=== PATIENT | male | born 1965 | race Caucasian/White ===

== ENCOUNTER 2016-05-13 09:37 | Inpatient (IN) | payer OTHER ==
[~2016-05-13] VITALS: Ht 180.3 cm; Wt 89.6 kg
[2016-05-13] VITALS (10 sets, daily range): BP systolic 118–156; BP diastolic 64–89; PULSE 101–117; RESP 16–24; TEMP 98.8–100.2; O2SAT 95–98
[~2016-05-13 09:37] MED LIST: METH40TA PO; ZOFR4TAB PO
--- NOTE | 2016-05-13 10:21 | PD ---
HPI Chief Complaint: GI Complaint Time Seen by Provider: 10:03 Travel History International Travel<30 days: No Contact w/Intl Traveler<30days: No Traveled to known affect area: No History of Present Illness HPI This is a 50-year-old male who has a history of drug use and recent heavy alcohol use who presents to the emergency department with 1 week of increasing confusion and abdominal distention that's been appreciated by his sister. 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 She says one week ago she noticed that his abdomen was distended. They took him to the [place] emergency department where he was noted to have low platelets and an elevated bilirubin consistent with liver disease. He was discharged home. His sister reports that he's been increasingly confused, and is unable to do things on his own. He was was to move into his brother's house but he's been unable to do that without getting fatigued and he is difficult to direct. She says he has no history of known liver disease. He's never used IV drugs that she knows, but he did use cocaine heavily years ago. He has not had any fevers or chills but he has been constipated. He is on methadone due to a history of opiate dependency, but he' s missed his methadone over the past 3 days because of the holiday and because he's been ill. [facility] Past Medical History Hx Anticoagulant Therapy: No Cardiovascular Problems: Yes (HTN) Diabetes: Yes (TYPE 2) Patient Takes Glucophage: Yes Diminished Hearing: No Hypertension: Yes Musculoskeletal: Yes (CHRONIC ANTERIOR NECK PAIN) Immunizations Current: No Thyroid Disease: Yes (NODULE ABLATION) Past Surgical History Other Surgery: Yes (THYROID NODULE ABLATION) Social History Alcohol Use: Yes (DAILY X 2 WEEKS) Tobacco Use: Yes (05/13 PPD) Substance Use: Yes (HX NARCOTIC ABUSE; METHADONE MAINTENENCE SINCE 05/2015) Allergies-Medications (Allergen,Severity, Reaction): Coded Allergies: Benadryl (Verified Allergy, Unknown, Twitching, 05/13/16) Dystonic Rxn per patient. Darvocet-N 100 (Verified Allergy, Unknown, Rash, 05/13/16) Morphine (Verified Allergy, Unknown, Rash, 05/13/16) PT DENIES ON 1/2/17 Reported Meds & Prescriptions Reported Meds & Active Scripts Active Reported Methadone (Methadone HCl) 40 Mg Tab 90 Mg PO DAILY Review of Systems Except as stated in HPI: all other systems reviewed are Neg Physical Exam Narrative GENERAL:Well appearing, no acute distress SKIN: Telangiectasias along the chest wall HEAD: Atraumatic. Normocephalic. EYES: Pupils equal and round. No injection or drainage. ENT: Moist mucous membranes NECK: Trachea midline. CARDIOVASCULAR: Regular rate and rhythm. No murmur appreciated. RESPIRATORY: Clear to auscultation. Breath sounds equal bilaterally. GASTROINTESTINAL: Abdomen soft, distended, markedly tender to palpation in the right upper quadrant and epigastrium with some guarding. MUSCULOSKELETAL: No obvious deformities. NEUROLOGICAL: Awake and alert. No obvious cranial nerve deficits. Moving all extremities. PSYCHIATRIC: Appropriate mood and affect; insight and judgment normal. Data Data Last Documented VS Vital Signs Date Time Temp Pulse Resp B/P Pulse Ox O2 Delivery O2 Flow Rate FiO2 05/13/16 10:26 97 Room Air 05/13/16 09:54 101 20 156/64 05/13/16 09:38 98.8 Orders Complete Blood Count With Diff (05/13/16 10:18) Comprehensive Metabolic Panel (05/13/16 10:18) Lipase (05/13/16 10:18) Prothrombin Time / Inr (Pt) (05/13/16 10:18) Act Partial Throm Time (Ptt) (05/13/16 10:18) Iv Access Insert/Monitor (05/13/16 10:18) Ecg Monitoring (05/13/16 10:18) Oximetry (05/13/16 10:18) Sodium Chloride 0.9% Flush (Ns Flush) (05/13/16 10:30) Us Abdomen Liver (05/13/16 ) Ammonia (05/13/16 10:18) Alcohol (Ethanol) (05/13/16 10:18) Pantoprazole Inj (Protonix Inj) (05/13/16 12:45) Admit Order (Ed Use Only) (05/13/16 12:34) Alcohol Withdrawal Asmt-Ciwa ONCE (05/13/16 12:34) Flumazenil Inj (Romazicon Inj) (05/13/16 12:45) Lorazepam (Ativan) (05/13/16 12:45) Lorazepam Inj (Ativan Inj) (05/13/16 12:45) Lorazepam (Ativan) (05/13/16 12:45) Lorazepam Inj (Ativan Inj) (05/13/16 12:45) Lorazepam Inj (Ativan Inj) (05/13/16 12:45) Lorazepam Inj (Ativan Inj) (05/13/16 12:45) Labs Laboratory Tests Test 05/13/16 10:20 White Blood Count 7.2 TH/MM3 Red Blood Count 3.75 MIL/MM3 Hemoglobin 13.5 GM/DL Hematocrit 38.5 % Mean Corpuscular Volume 102.5 FL Mean Corpuscular Hemoglobin 36.0 PG Mean Corpuscular Hemoglobin 35.1 % Concent Red Cell Distribution Width 18.3 % Platelet Count 61 TH/MM3 Mean Platelet Volume 9.2 FL Neutrophils (%) (Auto) 73.7 % Lymphocytes (%) (Auto) 12.3 % Monocytes (%) (Auto) 12.8 % Eosinophils (%) (Auto) 0.1 % Basophils (%) (Auto) 1.1 % Neutrophils # (Auto) 5.3 TH/MM3 Lymphocytes # (Auto) 0.9 TH/MM3 Monocytes # (Auto) 0.9 TH/MM3 Eosinophils # (Auto) 0.0 TH/MM3 Basophils # (Auto) 0.1 TH/MM3 CBC Comment AUTO DIFF Differential Comment AUTO DIFF CONFIRMED Platelet Estimate LOW Platelet Morphology Comment NORMAL Target Cells 2+ Prothrombin Time 15.2 SEC Prothromb Time International 1.4 RATIO Ratio Activated Partial 28.9 SEC Thromboplast Time Sodium Level 134 MEQ/L Potassium Level 3.9 MEQ/L Chloride Level 93 MEQ/L Carbon Dioxide Level 29.2 MEQ/L Anion Gap 12 MEQ/L Blood Urea Nitrogen 9 MG/DL Creatinine 0.84 MG/DL Estimat Glomerular Filtration 97 ML/MIN Rate Random Glucose 126 MG/DL Calcium Level 8.5 MG/DL Total Bilirubin 2.6 MG/DL Aspartate Amino Transf 191 U/L (AST/SGOT) Alanine Aminotransferase 60 U/L (ALT/SGPT) Alkaline Phosphatase 536 U/L Ammonia 13 MCMOL/L Total Protein 8.4 GM/DL Albumin 2.4 GM/DL Lipase 273 U/L Ethyl Alcohol Level 290 MG/DL MDM Medical Decision Making Medical Screen Exam Complete: Yes Emergency Medical Condition: Yes Interpretation(s) Afebrile, tachycardic, normotensive Macrocytosis Thrombocytopenia INR is 1.4 Total bilirubin is 2.6 Alkaline phosphatase is 536 Alcohol level is 290 Ultrasound: Moderate ascites, no documented flow in the portal vein consistent with partial thrombosis Differential Diagnosis Gastritis, pancreatitis, cholelithiasis, cholecystitis, acute opiate withdrawal Narrative Course This is a 50-year-old male who has a history of alcoholism, opiate dependence and drug abuse who presents to the emergency department with abdominal pain brought in by his sister. He was placed on a monitor and an IV was established. Labs were obtained which are consistent with labs from 1 week ago demonstrating liver disease and likely alcoholic cirrhosis in the setting of thrombocytopenia and elevated coags. Ultrasound was obtained of the right upper quadrant demonstrating a likely partial portal vein thrombosis. I performed a Hemoccult which was positive. The sister does say that he's had some brown emesis. Patient will be started on pantoprazole. I will defer anticoagulation at this time. He will be placed on the CIWA protocol given his alcohol level was 290. We did confirm his methadone dose at 90 but given his elevated alcohol level I don't think it's appropriate to administer it at this time. Patient will be admitted for GI consultation. Diagnosis Primary Impression: Portal vein thrombosis Admitting Information Admitting Physician Requests: Admit Sonali Reese MD May 13, 2016 10:21
[2016-05-13] MEDS ORDERED: SODIUM CHLORIDE 0.9% FLUSH 5 ML FLUSH IVF PRN (10:30)
[2016-05-13 10:34] LABS: AUTOMATED NEUTROPHIL # 5.3 TH/MM3 (1.8-7.7); BASOPHIL # 0.1 TH/MM3 (0-0.2); BASOPHIL % 1.1 % (0.0-2.0); EOSINOPHIL % 0.1 % (0.0-4.0); HEMATOCRIT 38.5 % (39.0-51.0); LYMPH % 12.3 % (9.0-44.0); LYMPHOCYTE # 0.9 TH/MM3 (1.0-4.8); MEAN CELL VOLUME 102.5 FL (80.0-100.0); MEAN CORPUSCULAR HGB CONC 35.1 % (32.0-36.0); MONO % 12.8 % (0.0-8.0); NEUT % 73.7 % (16.0-70.0); PLATELET COUNT 61 TH/MM3 (150-450); RED BLOOD COUNT 3.75 MIL/MM3 (4.50-5.90); RED CELL DISTRIBUTION WIDTH 18.3 % (11.6-17.2); WHITE BLOOD COUNT 7.2 TH/MM3 (4.0-11.0)
[2016-05-13 10:36] LABS: HEMO FLAGS AUTO DIFF
[2016-05-13 10:43] LABS: APTT (PATIENT) 28.9 SEC (24.3-30.1); INTERNATIONAL NORMALIZED RATIO 1.4 RATIO; PROTHROMBIN TIME - PATIENT 15.2 SEC (9.8-11.6)
[2016-05-13 10:45] LABS: ALT (GPT) 60 U/L (12-78); ANION GAP 12 MEQ/L (5-15); AST (GOT) 191 U/L (15-37); BICARBONATE 29.2 MEQ/L (21.0-32.0); BLOOD UREA NITROGEN 9 MG/DL (7-18); CHLORIDE 93 MEQ/L (98-107); GLOMERULAR FILTRATION RATE 97 ML/MIN (>89); POTASSIUM 3.9 MEQ/L (3.5-5.1); SODIUM (NA) 134 MEQ/L (136-145)
[2016-05-13 10:47] LABS: ALKALINE PHOSPHATASE 536 U/L (45-117); TOTAL BILIRUBIN ADULT 2.6 MG/DL (0.2-1.0)
[2016-05-13 11:05] LABS: SCAN/DIFF AUTO DIFF CONFIRMED
[2016-05-13 11:06] LABS: PLATELET ESTIMATE SMEAR LOW (NORMAL); PLATELET MORPHOLOGY NORMAL (NORMAL)
[2016-05-13 11:07] LABS: TARGET CELLS 2+ (NORMAL)
--- NOTE | 2016-05-13 12:13 | RADRPT ---
EXAM DATE/TIME: 05/13/2016 10:49 [facility] COMPARISON: No previous studies available for comparison. INDICATIONS : Increased lab values. MEDICAL HISTORY : Hypertension. Diabetes. SURGICAL HISTORY : Thyroid nodule ablation. Cervial fusion anterior C4-C6 ENCOUNTER: Initial ACUITY: 1 day PAIN SCORE: 5/10 LOCATION: Abdomen. MEASUREMENTS: LIVER: 18.3 cm length COMMON DUCT: 5 mm RIGHT KIDNEY: 11.2 x 5.7 x 5.8 cm SPLEEN: 13.8 cm length FINDINGS: LIVER: 8mm cyst in the left lobe of the liver. Moderate ascites. Hepatofugal flow in the main portal vein. T here is evidence of partial portal vein thrombosis. COMMON DUCT: No intraluminal mass or stone visualized. GALLBLADDER: Olelithiasis is seen without definite wall thickening. PANCREAS: The visualized portions are within normal limits. RIGHT KIDNEY: No hydronephrosis, stone or mass. SPLEEN: No focal lesion. CONCLUSION: 1. Moderate ascites in all 4 quadrants. 2. Hepatosplenomegaly with hepatofugal flow within the main portal vein and 3. Cholelithiasis. 4. There is no documented flow in the main portal vein near the danie hepatis on color Doppler imagin g consistent with partial thrombosis. Dayton Hart MD on May 13, 2016 at 12:10 Board Certified Radiologist. This report was verified electronically.
[2016-05-13] MEDS ORDERED: PANTOPRAZOLE SODIUM 40 MG VIAL IV PUSH ONE (12:45)
[2016-05-13] MEDS ORDERED: LORazepam 2 MG/ML VIAL IV PUSH PRN ×3 (12:45)
[2016-05-13] MEDS ORDERED: LORazepam 2 MG TAB PO PRN (12:45)
[2016-05-13] MEDS ORDERED: FLUMAZENIL 1 MG/10 ML VIAL IV PUSH PRN (12:45)
[2016-05-13] MEDS ORDERED: LORazepam 1 MG TAB PO PRN (12:45)
--- NOTE | 2016-05-13 13:43 | HHI.HP ---
[facility] Service Family Medicine Primary Care Physician No Primary Care Physician Admission Diagnosis portal vein thrombosis Diagnoses: International Travel<30 Days: No Contact w/Intl Traveler<30days: No Known Affected Area: No History of Present Illness Patient is a 50-year-old man with a history of substance abuse who presents with 1 week of increasing confusion, abdominal distention, abdominal pain, nausea, vomiting, constipation. He reports that his confusion largely consists of forgetfulness and not knowing where he puts things. He reports vomiting for days, and that he hasn't been eating or stooling. He describes the vomit as appearing yellow then green then dark brown but not coffee ground in appearance. 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 When pt first noticed that his abdomen was distended, he went to the [facility] emergency department where he was noted to have low platelets and an elevated bilirubin consistent with liver disease. He was discharged home with antinausea medication. He reports that Zofran was not working for his nausea and vomiting, but Phenergan seemed to help. His sister, a nurse, gave him Aldactone, which seemed to help but only temporarily. Patient denies any previous history of known liver disease. He denied using IV drugs, but he did use cocaine heavily years ago. He has not had any fevers or chills but he has been constipated. He is on methadone due to a history of opiate dependency, but he's missed his methadone over the past 3 -4 days because of the holiday. (Sohail Griffin MD R1) Review of Systems Constitutional: COMPLAINS OF: Weight gain (fluid), Chills (come and go q15min) , Change in appetite (decreased), DENIES: Fever, Night Sweats Endocrine: DENIES: Polyuria Eyes: COMPLAINS OF: Blurred vision Ears, nose, mouth, throat: COMPLAINS OF: Running Nose, DENIES: Hearing loss, Throat pain Respiratory: COMPLAINS OF: Shortness of breath (with belly) Cardiovascular: COMPLAINS OF: Lower Extremity Edema (ankles), Orthopnea, DENIES: Chest pain, Syncope Gastrointestinal: COMPLAINS OF: Abdominal pain, Constipation, Nausea, Vomiting , DENIES: Black stools, Bloody stools (yellow stools), Diarrhea Genitourinary: DENIES: Dysuria Musculoskeletal: COMPLAINS OF: Muscle aches (all over) Neurologic: COMPLAINS OF: Headache Psychiatric: COMPLAINS OF: Confusion (Sohail Griffin MD R1) Past Family Social History Past Medical History c-spine injury HTN t2DM - diet and exercised, was on metformin for 4 years but not currently on synthroid for a while but not currently Past Surgical History C-spine surgery with cadaver bones radioablation of thyroid Reported Medications methadone 90mg aldactone recently advil pm tylenol (Sohail Griffin MD R1) Allergies: Coded Allergies: Benadryl (Verified Allergy, Unknown, Twitching, 05/13/16) Dystonic Rxn per patient. Darvocet-N 100 (Verified Allergy, Unknown, Rash, 05/13/16) Morphine (Verified Allergy, Unknown, Rash, 05/13/16) PT DENIES ON 05/13/16 Active Ordered Medications Current Medications Medications (Trade) Dose Ordered Sig/Laurie Route Start Time Stop Time Status Last Admin (Ativan) 1 mg Q4H PRN PO 05/13/16 12:45 (Ativan Inj) 1 mg Q4H PRN IV PUSH 05/13/16 12:45 05/14/16 01:39 (Ativan) 2 mg Q2H PRN PO 05/13/16 12:45 (Ativan Inj) 2 mg Q2H PRN IV PUSH 05/13/16 12:45 05/13/16 17:06 (Ativan Inj) 2 mg Q1H PRN IV PUSH 05/13/16 12:45 05/13/16 14:53 (Ativan Inj) 2 mg Q15M PRN IV PUSH 05/13/16 12:45 (NS Flush) 2 ml UNSCH PRN FLUSH 05/13/16 14:45 (NS Flush) 2 ml BID FLUSH 05/13/16 21:00 (Zofran Inj) 4 mg Q6H PRN IVP 05/13/16 14:45 05/13/16 21:48 (Ambien) 5 mg HS PRN PO 05/13/16 14:45 (Narcan Inj) 0.4 mg UNSCH PRN IV 05/13/16 14:45 (Dolophine) 90 mg DAILY PO 05/13/16 16:00 05/13/16 17:01 (Lasix Inj) 20 mg BID@,18 IV PUSH 05/13/16 18:00 05/13/16 18:01 (Aldactone) 100 mg DAILY PO 05/13/16 16:00 05/13/16 17:02 (Dilaudid Pf Inj) 1 mg Q4H PRN IV 05/13/16 15:00 (Reglan Inj) 10 mg Q6H PRN IV 05/13/16 15:00 (Phenergan Inj) 25 mg Q6H PRN IM 05/13/16 15:00 (Compazine Supp) 25 mg Q12H PRN [place] 05/13/16 15:00 (Protonix Inj) 40 mg DAILY IV 05/14/16 09:00 (Narcan Inj) 0.4 mg UNSCH PRN IV 05/13/16 15:00 (Motrin) 400 mg Q6H PRN PO 05/13/16 15:00 (Toradol Inj) 15 mg Q6H PRN IVP 05/13/16 15:00 05/18/16 14:59 (Toradol Inj) 30 mg Q6H PRN IVP 05/13/16 15:00 05/18/16 14:59 (Ultram) 50 mg Q4H PRN PO 05/13/16 15:00 (Ultram) 100 mg Q4H PRN PO 05/13/16 15:00 (Narcan Inj) 0.4 mg UNSCH PRN IV 05/13/16 15:00 (Pneumovax-23 Inj) 25 mcg ONCE ONCE IM 05/14/16 10:00 05/14/16 10:01 (Flu (Quadrivalent) Vaccine Inj) 0.5 ml ONCE ONCE IM 05/14/16 10:00 05/14/16 10:01 (Nancy-Colace) 2 tab BID PO 05/13/16 21:30 05/13/16 21:41 (Miralax) 17 gm DAILY PO 05/14/16 09:00 (Lovenox Inj) 90 mg Q12H SQ 05/13/16 22:00 05/13/16 21:58 Family History dad - 2 ya of liver failure, cirrhosis, DM, hepatorenal syndrome, thyroid cancer - pt, sister with mets. [place] with radiation exposure. mom, pt, sis - HTN Social History Per sister, in his 20's, patient was addicted to crack and cocaine. 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 He was , doing well, until she cheated on him. 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 For years, he was on and off the EtOH wagon. Over a year ago, he snorting heroin. On 90mg methadone for a long while. He lives in an apartment with roommate Peter. Not much smoking lately, but he was smoking 1ppd since 13 yo. EtOH daily for a couple months. He drank only occasionally prior to 2-3 months ago. Drugs none for years. Patient likely had hepatitis tested as district plant engineer. 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 (Sohail Griffin MD R1) Physical Exam Vital Signs Vital Signs Date Time Temp Pulse Resp B/P Pulse Ox O2 Delivery O2 Flow Rate FiO2 05/13/16 12:58 104 20 133/89 97 Room Air 05/13/16 10:26 97 Room Air 05/13/16 09:54 101 20 156/64 95 05/13/16 09:38 98.8 105 16 140/69 97 Physical Exam GENERAL: This is a well-nourished, well-developed patient who appears uncomfortable and is heard vomiting from outside the emergency department room but in no acute distress. SKIN: No rashes, ecchymoses or lesions. Cool and dry. HEAD: Atraumatic. Normocephalic. EYES: Pupils equal round and reactive. Extraocular motions intact. No scleral icterus. No injection or drainage. ENT: Nose without bleeding, purulent drainage. Throat without erythema, tonsillar hypertrophy or exudate. Uvula midline. Airway patent. NECK: Trachea midline. No JVD or lymphadenopathy. Supple, nontender, no meningeal signs. CHEST: spider angiomata/telangiectasias on chest. CARDIOVASCULAR: Regular rate and rhythm without murmurs, gallops, or rubs. RESPIRATORY: Clear to auscultation. Breath sounds equal bilaterally. No wheezes , rales, or rhonchi. GASTROINTESTINAL: Abdomen distended with fluid, but soft, non-tender. No guarding. MUSCULOSKELETAL: Extremities without clubbing, cyanosis, or edema. No joint tenderness, effusion, or edema noted. No calf tenderness. Myoclonic jerks of upper extremities. NEUROLOGICAL: Awake and alert. Cranial nerves II through XII grossly intact. Motor and sensory grossly within normal limits. Normal speech. Laboratory Laboratory Tests Test 05/13/16 10:20 White Blood Count 7.2 Red Blood Count 3.75 Hemoglobin 13.5 Hematocrit 38.5 Mean Corpuscular Volume 102.5 Mean Corpuscular Hemoglobin 36.0 Mean Corpuscular Hemoglobin 35.1 Concent Red Cell Distribution Width 18.3 Platelet Count 61 Mean Platelet Volume 9.2 Neutrophils (%) (Auto) 73.7 Lymphocytes (%) (Auto) 12.3 Monocytes (%) (Auto) 12.8 Eosinophils (%) (Auto) 0.1 Basophils (%) (Auto) 1.1 Neutrophils # (Auto) 5.3 Lymphocytes # (Auto) 0.9 Monocytes # (Auto) 0.9 Eosinophils # (Auto) 0.0 Basophils # (Auto) 0.1 CBC Comment AUTO DIFF Differential Comment AUTO DIFF CONFIRMED Platelet Estimate LOW Platelet Morphology Comment NORMAL Target Cells 2+ Prothrombin Time 15.2 Prothromb Time International 1.4 Ratio Activated Partial 28.9 Thromboplast Time Sodium Level 134 Potassium Level 3.9 Chloride Level 93 Carbon Dioxide Level 29.2 Anion Gap 12 Blood Urea Nitrogen 9 Creatinine 0.84 Estimat Glomerular Filtration 97 Rate Random Glucose 126 Calcium Level 8.5 Total Bilirubin 2.6 Aspartate Amino Transf 191 (AST/SGOT) Alanine Aminotransferase 60 (ALT/SGPT) Alkaline Phosphatase 536 Ammonia 13 Total Protein 8.4 Albumin 2.4 Lipase 273 Ethyl Alcohol Level 290 (Sohail Griffin MD R1) Result Diagram: 05/13/16 1020 05/13/16 1020 Imaging Last Impressions Liver Ultrasound 05/13/16 0000 Signed Impressions: Service Date/Time: Friday, May 13, 2016 10:49 - CONCLUSION: 1. Moderate ascites in all 4 quadrants. 2. Hepatosplenomegaly with hepatofugal flow within the main portal vein and 3. Cholelithiasis. 4. There is no documented flow in the main portal vein near the danie hepatis on color Doppler imaging consistent with partial thrombosis. Dayton Hart MD Course In the emergency department, patient had alcohol level, ammonia level, ultrasound of the abdomen and liver, a PTT, PT/INR, lipase, CMP, CBC, CIWA protocol with Ativan, Protonix 40 mg IV push 1. (Sohail Griffin MD R1) Assessment and Plan Assessment and Plan 50-year-old man with a history of substance abuse, heavy drinking recently and remote history of snorting cocaine and heroin, presents with portal vein thrombosis. Code Status Full code Discussed Condition With Patient seen and discussed with Dr. Fabienne Montez and Dr. Kalia Montez. (Sohail Griffin MD R1) Attending Attestation Patient seen and examined. Case reviewed and discussed with the resident team. Agree with plan of care as discussed with me and documented in the resident note. (Fabienne Montez MD) Problem List: (1) Portal vein thrombosis Status: Acute Plan: Patient presents with nausea, vomiting, abdominal pain, constipation, ultrasound imaging showing portal vein thrombosis. Admit to inpatient Gastroenterology consult Anticoagulation with Lovenox 1 mg/kg every 12 hours Hepatitis profile, HIV, iron profile CBC, CMP in the morning Pain control as below: * Dilaudid 1 mg IV every 4 hours when necessary for breakthrough pain * Ibuprofen 400 mg by mouth every 6 hours when necessary for pain 1-2 * Toradol 15 mg IV push every 6 hours when necessary for pain 3-5 * Toradol 3 mg IV push every 6 hours when necessary for pain 6-10 * Tramadol 50 mg by mouth every 4 hours when necessary for pain 3-5 * Tramadol 100 mg by mouth every 4 hours when necessary for pain 6-10 Constipation control as below: * MiraLAX 17 g by mouth daily * Nancy-Colace 2 tab by mouth twice a day Nausea control as below: * Reglan 10 mg IV every 6 hours when necessary for nausea or vomiting * Zofran 4 mg IV push every 6 hours when necessary for nausea or vomiting * Compazine 25 mg WY every 12 hours when necessary for nausea or vomiting * Phenergan 25 mg IM every 6 hours when necessary for nausea or vomiting Diuretics as below: * Spironolactone 100 mg by mouth daily * Lasix 20 mg IV push twice a day Protonix 40 mg IV daily Ambien family and by mouth daily at bedtime when necessary for insomnia Monitor vital signs Monitor intake and output surveillance system monitor/telemetry Administer oxygen as needed (2) Ascites Status: Acute Plan: Diuresis as above (3) Methadone dependence Status: Chronic Plan: Patient with methadone dependence. Methadone 90 mg by mouth daily; plan to wean as outpatient (4) Alcohol use Status: Chronic Plan: Patient with history of heavy drinking complaining of withdrawal symptoms. CIWA protocol (5) Tobacco use Status: Chronic Plan: Patient reports smoking about a pack per day since 13 years old and more recently about a half pack per day. Nicotine patch 14 mg patch transdermal daily (6) No contraindication to deep vein thrombosis (DVT) prophylaxis Status: Acute Plan: Anticoagulation as a treatment for portal vein thrombosis. Anticoagulation with Lovenox 1 mg/kg every 12 hours (7) Nutrition, metabolism, and development symptoms Status: Acute Plan: Fluids: Fluid restrict patient as he is currently volume overloaded Electrolytes: Monitor and replete as necessary Nutrition: Regular basic diet as tolerated GI prophylaxis: Protonix 40 mg IV daily (Sohail Griffin MD R1) Physician Certification 2 Midnight Certification Type: Admission for Inpatient Services Order for Inpatient Services The services are ordered in accordance with Medicare regulations or non- Medicare payer requirements, as applicable. In the case of services not specified as inpatient-only, they are appropriately provided as inpatient services in accordance with the 2-midnight benchmark. Estimated LOS (days): 2 2 days is the estimated time the patient will need to remain in the hospital, assuming treatment plan goals are met and no additional complications. Post-Hospital Plan: Not yet determined (Sohail Griffin MD R1) Sohail Griffin MD R1 May 13, 2016 13:43 Fabienne Montez MD May 14, 2016 14:12
[2016-05-13] MEDS ORDERED: ZOLPIDEM TARTRATE 5 MG TAB PO PRN (14:45)
[2016-05-13] MEDS ORDERED: SODIUM CHLORIDE 0.9% FLUSH 5 ML FLUSH FLUSH PRN (14:45)
[2016-05-13] MEDS ORDERED: NALOXONE HCL 0.4 MG/ML AMP IV PRN ×3 (14:45→15:00)
--- NOTE | 2016-05-13 14:53 | HHI.FPPN ---
Subjective Remarks Pt. seen, examined and discussed withDrs. Hernandez. 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 For the past 5 days he has had abdominal swelling, LE edema, anorexia, nausea and vomiting, and constipation to the point of trying manual extraction of stool at home. Remote fentanyl, heroin usage. Some SOB with his abdominal swelling. Has been taking aldactone given to him by his sister. Has not had his daily methadone since 05-08-16. Has been trying to cut back on his etoh the last few days. Has been having shakes, hallucinations at times, no blackouts but myoclonic jerks daily. See H&P for this admission for additional past, family and social history. His sister who is an RN is present and contributes to the history. Review of systems is positive for blurry vision, GI complaints as noted above, bruxing for years, occasional blurry vision, forgetfulness; otherwise all other systems reviewed and were negative Objective Vitals Vital Signs Date Time Temp Pulse Resp B/P Pulse Ox O2 Delivery O2 Flow Rate FiO2 05/13/16 12:58 104 20 133/89 97 Room Air 05/13/16 10:26 97 Room Air 05/13/16 09:54 101 20 156/64 95 05/13/16 09:38 98.8 105 16 140/69 97 Result Diagram: 05/13/16 1020 05/13/16 1020 Other Results Laboratory Tests Test 05/13/16 10:20 White Blood Count 7.2 TH/MM3 Red Blood Count 3.75 MIL/MM3 Hemoglobin 13.5 GM/DL Hematocrit 38.5 % Mean Corpuscular Volume 102.5 FL Mean Corpuscular Hemoglobin 36.0 PG Mean Corpuscular Hemoglobin 35.1 % Concent Red Cell Distribution Width 18.3 % Platelet Count 61 TH/MM3 Mean Platelet Volume 9.2 FL Neutrophils (%) (Auto) 73.7 % Lymphocytes (%) (Auto) 12.3 % Monocytes (%) (Auto) 12.8 % Eosinophils (%) (Auto) 0.1 % Basophils (%) (Auto) 1.1 % Neutrophils # (Auto) 5.3 TH/MM3 Lymphocytes # (Auto) 0.9 TH/MM3 Monocytes # (Auto) 0.9 TH/MM3 Eosinophils # (Auto) 0.0 TH/MM3 Basophils # (Auto) 0.1 TH/MM3 CBC Comment AUTO DIFF Differential Comment AUTO DIFF CONFIRMED Platelet Estimate LOW Platelet Morphology Comment NORMAL Target Cells 2+ Prothrombin Time 15.2 SEC Prothromb Time International 1.4 RATIO Ratio Activated Partial 28.9 SEC Thromboplast Time Sodium Level 134 MEQ/L Potassium Level 3.9 MEQ/L Chloride Level 93 MEQ/L Carbon Dioxide Level 29.2 MEQ/L Anion Gap 12 MEQ/L Blood Urea Nitrogen 9 MG/DL Creatinine 0.84 MG/DL Estimat Glomerular Filtration 97 ML/MIN Rate Random Glucose 126 MG/DL Calcium Level 8.5 MG/DL Total Bilirubin 2.6 MG/DL Aspartate Amino Transf 191 U/L (AST/SGOT) Alanine Aminotransferase 60 U/L (ALT/SGPT) Alkaline Phosphatase 536 U/L Ammonia 13 MCMOL/L Total Protein 8.4 GM/DL Albumin 2.4 GM/DL Lipase 273 U/L Ethyl Alcohol Level 290 MG/DL Imaging Liver US: moderate asites all 4 quadrants, cholelithiasis, partial thrombosis portal vein Objective Remarks O. CONSTITUTIONAL/GEN: normally nourished, in distress with N & V, constipation, tremulousness. EYES: conjunctiva normal, PERRLA, EOMI. ENT: Mouth and pharynx normal. Evidence of [facility] bruxing NECK: thyroid midline, carotids symmetrical. LUNGS: clear A-P, respiratory effort is normal. CARDIOVASCULAR: RR without murmur or gallop. 2-3+ pitting edema to knee. GI/ABD: protuberant with fluid wave, soft without masses, without organomegaly. : no CVA tenderness NEURO: No focal deficits. Tremulous with occasional myoclonic jerks. SKIN: somewhat bronze with scattered spider angiomata. HEME/LYMPH: no bruising, petechia or significant adenopathy MUSC: back is normal in appearance. Extremities are normal in appearance except for the edema PSYCH/MENTAL STATUS: Alert and oriented x 3. A/P Assessment and Plan Ascites, elevated liver enzymes, cholelithiasis, partial thrombosed portal vein in a man with significant narcotic history, on methadone for one year. Attending Attestation Patient seen and examined. Case reviewed and discussed with the resident team. Agree with plan of care as discussed with me and documented in the resident note. Fabienne Montez MD May 13, 2016 14:53
[2016-05-13] MEDS ORDERED: IBUPROFEN 400 MG TAB PO PRN (15:00)
[2016-05-13] MEDS ORDERED: traMADol HCL 50 MG TAB PO PRN ×2 (15:00)
[2016-05-13] MEDS ORDERED: PROCHLORPERAZINE 25 MG SUPP PR PRN (15:00)
[2016-05-13] MEDS ORDERED: PROMETHAZINE INJ 25 MG/ML VIAL IM PRN (15:00)
[2016-05-13] MEDS ORDERED: KETOROLAC TROMETHAMINE 30 MG/ML (IVP) VIAL IVP PRN ×2 (15:00)
[2016-05-13] MEDS ORDERED: HYDROmorphone HCL PF 1 MG/ML VIAL IV PRN (15:00)
[2016-05-13 15:31] LABS: TRANSFERRIN IRON PROFILE 164 MG/DL (200-360)
[2016-05-13] MEDS: METHADONE HCL 10 MG TAB PO SCH (17:01)
[2016-05-13] MEDS: SPIRONOLACTONE 100 MG TAB PO SCH (17:02)
[2016-05-13] MEDS: FUROSEMIDE 20 MG/2 ML VIAL IV PUSH SCH (18:01)
[2016-05-13] MEDS: SODIUM CHLORIDE 0.9% FLUSH 5 ML FLUSH FLUSH SCH (20:18)
[2016-05-13] MEDS: DOCUSATE SODIUM 50 MG/SENNA 8.6 MG TAB PO SCH (21:41)
[2016-05-13] MEDS: LORazepam 2 MG/ML VIAL IV PUSH PRN (21:48)
[2016-05-13] MEDS: ONDANSETRON HCL 4 MG/2 ML VIAL IVP PRN (21:48)
[2016-05-13] MEDS: ENOXAPARIN SODIUM 100 MG/ML SYRINGE SQ SCH (21:58)
[2016-05-14] VITALS (7 sets, daily range): BP systolic 115–136; BP diastolic 58–85; PULSE 97–127; RESP 18–22; TEMP 97.6–98.5; O2SAT 93–97
[2016-05-14] MEDS: LORazepam 2 MG/ML VIAL IV PUSH PRN ×5 (01:39→18:29)
[2016-05-14 06:48] LABS: AUTOMATED NEUTROPHIL # 4.5 TH/MM3 (1.8-7.7); BASOPHIL % 0.6 % (0.0-2.0); EOSINOPHIL % 0.6 % (0.0-4.0); HEMATOCRIT 32.8 % (39.0-51.0); LYMPH % 20.5 % (9.0-44.0); LYMPHOCYTE # 1.4 TH/MM3 (1.0-4.8); MEAN CELL VOLUME 102.9 FL (80.0-100.0); MEAN CORPUSCULAR HEMOGLOBIN 35.9 PG (27.0-34.0); MEAN CORPUSCULAR HGB CONC 34.9 % (32.0-36.0); MONO % 11.7 % (0.0-8.0); NEUT % 66.6 % (16.0-70.0); PLATELET COUNT 44 TH/MM3 (150-450); RED BLOOD COUNT 3.19 MIL/MM3 (4.50-5.90); RED CELL DISTRIBUTION WIDTH 18.8 % (11.6-17.2); WHITE BLOOD COUNT 6.7 TH/MM3 (4.0-11.0)
[2016-05-14 07:05] LABS: ALKALINE PHOSPHATASE 464 U/L (45-117); ALT (GPT) 46 U/L (12-78); ANION GAP 12 MEQ/L (5-15); AST (GOT) 161 U/L (15-37); BICARBONATE 27.9 MEQ/L (21.0-32.0); BLOOD UREA NITROGEN 10 MG/DL (7-18); CHLORIDE 91 MEQ/L (98-107); GLOMERULAR FILTRATION RATE 102 ML/MIN (>89); POTASSIUM 3.8 MEQ/L (3.5-5.1); SODIUM (NA) 131 MEQ/L (136-145); TOTAL BILIRUBIN ADULT 3.6 MG/DL (0.2-1.0); TRANSFERRIN IRON PROFILE 130 MG/DL (200-360)
[2016-05-14 07:13] LABS: HEMO FLAGS AUTO DIFF
[2016-05-14] MEDS: DOCUSATE SODIUM 50 MG/SENNA 8.6 MG TAB PO SCH ×2 (08:00→20:52)
[2016-05-14] MEDS: SPIRONOLACTONE 100 MG TAB PO SCH ×2 (08:00→10:15)
[2016-05-14] MEDS: POLYETHYLENE GLYCOL 17 GM PKG PO SCH (08:00)
[2016-05-14] MEDS: METHADONE HCL 10 MG TAB PO SCH (08:01)
[2016-05-14] MEDS: FUROSEMIDE 20 MG/2 ML VIAL IV PUSH SCH ×3 (08:01→18:28)
[2016-05-14] MEDS: PANTOPRAZOLE SODIUM 40 MG VIAL IV SCH (08:01)
[2016-05-14] MEDS: NICOTINE 14 MG/24 HR PATCH TD SCH (08:02)
[2016-05-14] MEDS: SODIUM CHLORIDE 0.9% FLUSH 5 ML FLUSH FLUSH SCH ×2 (08:02→20:50)
[2016-05-14 08:59] LABS: PLATELET ESTIMATE SMEAR LOW (NORMAL); PLATELET MORPHOLOGY NORMAL (NORMAL); SCAN/DIFF AUTO DIFF CONFIRMED; TARGET CELLS 1+ (NORMAL)
--- NOTE | 2016-05-14 09:41 | PD.CONS ---
HPI History of Present Illness This is a 50 year old male with a hx of drug and alcohol abuse, who was brought to the emergency room for evaluation of increasing confusion and abdominal distention. The patient was extremely confused on admission and unable to provide much history. His daughter reported that he had been drinking heavily for the past 6 months and that she noticed that his abdomen was becoming more distended. She took him to the emergency room on May 08, 2016 and he was diagnosed with anasarca and ascites related to liver disease and discharged home Zofran for nausea and vomiting with GI follow-up. However he was having increasing confusion and was unable to care for herself and therefore she brought him back to the emergency room. Liver Ultrasound (05/13/16) revealed 1. Moderate ascites in all 4 quadrants. 2. Hepatosplenomegaly with hepatofugal flow within the main portal vein and 3. Cholelithiasis. 4. There is no documented flow in the main portal vein near the danie hepatis on color Doppler imaging consistent with partial thrombosis. The patient was started on Lovenox by the residents and GI was consulted for further evaluation. The patient is currently lethargic but awake and able to provide some history although he is a poor historian. He does admit to daily alcohol use, but refuses to quantify this and states that it's really not that much. He denies any current drug abuse. He reports that he's been having in her mid nausea and vomiting consisting of bilious material but no hematemesis for the past week. There are no aggravating or alleviating factors He also reports he has not had a bowel movement in 6 days and that he has had worsening abdominal distention for the past week. He also reports that he's had some swelling in his lower extremities. He denies any weight loss and reports that he has gained some weight although he is unable to quantify this. He does have some mild to moderate intermittent epigastric, midabdominal pain that he describes as a dull ache. He denies any relation to food intake and states this is aggravated by coughing and sudden movements. He does have heartburn and states that he takes Zantac for this, but often has to take an additional dose for breakthrough symptoms. He denies any melena or hematochezia or rectal bleeding. He denies ever being told in the past that he has liver cirrhosis or hepatitis. He does have a past history of drug abuse, but states that he is not using anything at this time and has not used IV drugs. (Ester Martínez) PFSH Past Medical History GERD HTN Type II DM ETOH Abuse Past drug abuse Chronic neck pain Thyroid nodule Past Surgical History Cervical fusion Ablation of thyroid nodule (Ester Martínez) Coded Allergies: Benadryl (Verified Allergy, Unknown, Twitching, 05/13/16) Dystonic Rxn per patient. Darvocet-N 100 (Verified Allergy, Unknown, Rash, 05/13/16) Morphine (Verified Allergy, Unknown, Rash, 05/13/16) PT DENIES ON 05/13/16 Medications Allergies Coded Allergies Type Severity Reaction Last Updated Verified Benadryl Allergy Unknown Twitching 05/13/16 Yes Darvocet-N 100 Allergy Unknown Rash 05/13/16 Yes Morphine Allergy Unknown Rash 05/13/16 Yes Active Scripts Medications Dose Route/Sig Days Date Category Methadone (Methadone HCl) 40 Mg Tab 90 Mg PO DAILY 05/08/16 Reported Family History Father from liver failure/cirrhosis. He cannot tell me if this was related to ETOH abuse or other liver disease. Social History Drinks daily, unable to quantify (Ester Martínez) Review of Systems Constitutional: COMPLAINS OF: Fatigue, Weight gain, Chills, Change in appetite , DENIES: Fever Respiratory: DENIES: Cough, Shortness of breath Cardiovascular: DENIES: Chest pain Gastrointestinal: COMPLAINS OF: Abdominal pain, Constipation, Nausea, Vomiting , Anorexia, Heartburn, DENIES: Black stools, Bloody stools, Diarrhea, Hematemesis Musculoskeletal: COMPLAINS OF: Neck pain, DENIES: Joint pain Hematologic/lymphatic: DENIES: Bruising Immunologic/allergic: DENIES: Eczema Psychiatric: COMPLAINS OF: Confusion (Ester Martínez) GI Exam Vitals I&O Vital Signs Date Time Temp Pulse Resp B/P Pulse Ox O2 Delivery O2 Flow Rate FiO2 05/14/16 08:00 98.5 112 18 125/79 93 05/14/16 04:00 97.9 107 22 115/68 94 05/14/16 00:00 98.4 127 20 131/85 94 05/13/16 21:30 115 05/13/16 20:00 100.2 106 24 136/88 97 1/2/17 19:37 108 05/13/16 18:02 18 05/13/16 17:45 99.4 102 22 130/87 96 05/13/16 17:10 110 20 118/81 98 Nasal Cannula 2 05/13/16 14:45 117 24 134/78 96 Room Air 05/13/16 12:58 104 20 133/89 97 Room Air 05/13/16 10:26 97 Room Air 05/13/16 09:54 101 20 156/64 95 05/13/16 09:38 98.8 105 16 140/69 97 I/O 05/13/16 05/13/16 05/13/16 05/14/16 05/14/16 05/14/16 07:00 15:00 23:00 07:00 15:00 23:00 Intake Total 850 ml 960 ml Output Total 650 ml 550 ml Balance 200 ml 410 ml Intake Oral 850 ml 960 ml Output Urine Total 650 ml 550 ml # Bowel Movements 0 Imaging Last Impressions Liver Ultrasound 05/13/16 0000 Signed Impressions: Service Date/Time: Friday, May 13, 2016 10:49 - CONCLUSION: 1. Moderate ascites in all 4 quadrants. 2. Hepatosplenomegaly with hepatofugal flow within the main portal vein and 3. Cholelithiasis. 4. There is no documented flow in the main portal vein near the danie hepatis on color Doppler imaging consistent with partial thrombosis. Dayton Hart MD Laboratory Test 05/13/16 05/14/16 10:20 05:31 White Blood Count 7.2 TH/MM3 6.7 TH/MM3 Red Blood Count 3.75 MIL/MM3 3.19 MIL/MM3 Hemoglobin 13.5 GM/DL 11.5 GM/DL Hematocrit 38.5 % 32.8 % Mean Corpuscular Volume 102.5 FL 102.9 FL Mean Corpuscular Hemoglobin 36.0 PG 35.9 PG Mean Corpuscular Hemoglobin 35.1 % 34.9 % Concent Red Cell Distribution Width 18.3 % 18.8 % Platelet Count 61 TH/MM3 44 TH/MM3 Mean Platelet Volume 9.2 FL 9.3 FL Neutrophils (%) (Auto) 73.7 % 66.6 % Lymphocytes (%) (Auto) 12.3 % 20.5 % Monocytes (%) (Auto) 12.8 % 11.7 % Eosinophils (%) (Auto) 0.1 % 0.6 % Basophils (%) (Auto) 1.1 % 0.6 % Neutrophils # (Auto) 5.3 TH/MM3 4.5 TH/MM3 Lymphocytes # (Auto) 0.9 TH/MM3 1.4 TH/MM3 Monocytes # (Auto) 0.9 TH/MM3 0.8 TH/MM3 Eosinophils # (Auto) 0.0 TH/MM3 0.0 TH/MM3 Basophils # (Auto) 0.1 TH/MM3 0.0 TH/MM3 CBC Comment AUTO DIFF AUTO DIFF Differential Comment AUTO DIFF AUTO DIFF CONFIRMED CONFIRMED Platelet Estimate LOW LOW Platelet Morphology Comment NORMAL NORMAL Target Cells 2+ 1+ Prothrombin Time 15.2 SEC Prothromb Time International 1.4 RATIO Ratio Activated Partial 28.9 SEC Thromboplast Time Sodium Level 134 MEQ/L 131 MEQ/L Potassium Level 3.9 MEQ/L 3.8 MEQ/L Chloride Level 93 MEQ/L 91 MEQ/L Carbon Dioxide Level 29.2 MEQ/L 27.9 MEQ/L Anion Gap 12 MEQ/L 12 MEQ/L Blood Urea Nitrogen 9 MG/DL 10 MG/DL Creatinine 0.84 MG/DL 0.80 MG/DL Estimat Glomerular Filtration 97 ML/MIN 102 ML/MIN Rate Random Glucose 126 MG/DL 65 MG/DL Calcium Level 8.5 MG/DL 7.9 MG/DL Iron Level 177 MCG/DL 172 MCG/DL Total Iron Binding Capacity 230 MCG/DL 182 MCG/DL Percent Iron Saturation 77.1 % 94.5 % Total Bilirubin 2.6 MG/DL 3.6 MG/DL Aspartate Amino Transf 191 U/L 161 U/L (AST/SGOT) Alanine Aminotransferase 60 U/L 46 U/L (ALT/SGPT) Alkaline Phosphatase 536 U/L 464 U/L Ammonia 13 MCMOL/L Total Protein 8.4 GM/DL 7.1 GM/DL Albumin 2.4 GM/DL 2.0 GM/DL Lipase 273 U/L Ethyl Alcohol Level 290 MG/DL Transferrin 130 MG/DL Physical Examination HEENT: Normocephalic; atraumatic; no jaundice. CHEST: Resp. even/unlabored, diminished CARDIAC: RRR ABDOMEN: Soft, mildly distended, nontender; no hepatosplenomegaly; bowel sounds are present in all four quadrants. EXTREMITIES: No clubbing, cyanosis, or edema. SKIN: Normal; no rash; no jaundice. [employer] APPRENTICE: No focal deficits; alert and oriented times three. (MartínezEster Maria Esthercali BRIONES) Assessment and Plan Plan ASSESSMENT: - Portal vein thrombosis. Unclear if this is acute or chronic. He has never been diagnosed with liver cirrhosis although he does have evidence of liver disease on labs. However, at the same time, he seems to have sudden decompensation over the past week with ascites and confusion. He was started on lovenox by primary team. But he has ongoing ETOH abuse and Platelets of 44. Will consult hematology for recommendations re: anticoagulation. - Confusion. Ammonia 13. Improved, although still lethargic. Toxicology screen. - Ascites, new onset. Moderate ascites all quadrants. Will ask for diagnostic/ therapeutic paracentesis. - Nausea, vomiting, abdominal pain x 6 days per patient. Improved at this time. - GERD. States he takes Ranitidine but still has breakthrough symptoms - Constipation. Reports no BM x 6 days. Will add lactulose. - Anemia with drop in Hgb but no evidence of blood loss. EGD when able. - Coaguloapathy, Thrombocytopenia. PT 15.2, INR 1.4, Plt 44 - Elevated LFTs, alcoholic hepatitis, ?underlying liver cirrhosis. Never been dx with cirrhosis although hx of ETOH abuse and drug abuse. Father from liver failure, cirrhosis- unclear if this was related to ETOH or other liver disease. Iron saturation 94.5%, Liver Ultrasound (05/13/16) revealed 1. Moderate ascites in all 4 quadrants. 2. Hepatosplenomegaly with hepatofugal flow within the main portal vein and 3. Cholelithiasis. 4. There is no documented flow in the main portal vein near the danie hepatis on color Doppler imaging consistent with partial thrombosis T. Bili 3.6, AST 161, ALT 46, Alk Phosph 464. Hepatitis profile pending. - Elevated Iron Saturation. Will get PLAN: - Clear liquids - Hematology consult for recommendations re: anticoagulation - Cont. Protonix - Cont. Lasix, Spironolactone - US Guided paracentesis with fluid sent for analysis - AFP level - BECCA, ASMA, AMA - Ceruloplasmin, Alpha 1 Antitrypsin - Hfe gene - D/C Toradol - D/C Motrin - EGD, timing to be determined - Supportive care - Further recommendations to follow based on results of above - PT seen and examined by Dr. Kimball and myself and this note is written on his behalf (Ester Martínez) Physician Comments Patient was seen and examined, agree with above note. we will check labs, continue supportive care. (Sushil Kimball MD) Ester Martínez May 14, 2016 09:41 Sushil Kimball MD May 14, 2016 18:50
[2016-05-14] MEDS ORDERED: INFLUENZA VIRUS VACCINE (QUADRIVALENT) 0.5 ML SYR IM ONE (10:00)
[2016-05-14] MEDS ORDERED: PNEUMOCOCCAL POLYVALENT INJ 25 MCG/0.5 ML SYR IM ONE (10:00)
[2016-05-14] MEDS: ENOXAPARIN SODIUM 100 MG/ML SYRINGE SQ SCH (10:13)
[2016-05-14 10:34] LABS: AMPHETAMINE, URINE NEG (NEG); BARBITURATES, URINE NEG (NEG); COCAINE, URINE NEG (NEG)
[2016-05-14 11:24] LABS: FERRITIN 721 NG/ML (26-388)
[2016-05-14 11:37] LABS: ACETAMINOPHEN LESS THAN 2.0 MCG/ML (10.0-30.0)
[2016-05-14] MEDS: ONDANSETRON HCL 4 MG/2 ML VIAL IVP PRN ×2 (12:41→20:49)
--- NOTE | 2016-05-14 12:53 | HHI.FPPN ---
Subjective Remarks No acute events overnight. Patient had a temperature of 100.2F overnight, pulse of 106-127, pulse ox 94-97% on room air. Patient reports decreased nausea , but he still has significant nausea, which causes him to vomit yellowish liquid. He reports fever and chills off and on throughout the night. He still complains of mid abdominal pain. He complains of shortness of breath, exacerbated by lying flat. Discussed plan of care with patient. (Sohail Griffin MD R1) Objective Vitals Vital Signs Date Time Temp Pulse Resp B/P Pulse Ox O2 Delivery O2 Flow Rate FiO2 05/14/16 12:00 97.8 98 18 132/78 94 05/14/16 08:00 98.5 112 18 125/79 93 05/14/16 04:00 97.9 107 22 115/68 94 05/14/16 00:00 98.4 127 20 131/85 94 05/13/16 21:30 115 05/13/16 20:00 100.2 106 24 136/88 97 05/13/16 19:37 108 05/13/16 18:02 18 05/13/16 17:45 99.4 102 22 130/87 96 05/13/16 17:10 110 20 118/81 98 Nasal Cannula 2 05/13/16 14:45 117 24 134/78 96 Room Air 05/13/16 12:58 104 20 133/89 97 Room Air I/O 05/13/16 05/13/16 05/13/16 05/14/16 05/14/16 05/14/16 07:00 15:00 23:00 07:00 15:00 23:00 Intake Total 850 ml 960 ml Output Total 650 ml 550 ml Balance 200 ml 410 ml Intake Oral 850 ml 960 ml Output Urine Total 650 ml 550 ml # Bowel Movements 0 (Sohail Griffin MD R1) Result Diagram: 05/14/16 0531 05/14/16 0531 Imaging Last Impressions Liver Ultrasound 05/13/16 0000 Signed Impressions: Service Date/Time: Friday, May 13, 2016 10:49 - CONCLUSION: 1. Moderate ascites in all 4 quadrants. 2. Hepatosplenomegaly with hepatofugal flow within the main portal vein and 3. Cholelithiasis. 4. There is no documented flow in the main portal vein near the danie hepatis on color Doppler imaging consistent with partial thrombosis. Dayton Hart MD Objective Remarks O. CONSTITUTIONAL/GEN: normally nourished, in distress N & V, constipation, tremulousness. EYES: conjunctiva normal, PERRLA, EOMI. ENT: Moist Mucous membranes NECK: thyroid midline, carotids symmetrical. LUNGS: clear to auscultation bilaterally with no crackles appreciated, respiratory effort is normal. CARDIOVASCULAR: RR without murmur or gallop. Improving pitting edema to knee. GI/ABD: protuberant with fluid wave, soft and nontender without masses. NEURO: No focal deficits. Tremulous with + asterixis SKIN: somewhat bronze with scattered spider angiomata. HEME/LYMPH: no bruising, petechia or significant adenopathy MUSC: back is normal in appearance. Extremities are normal in appearance except for the edema PSYCH/MENTAL STATUS: Alert and oriented x 3. (Sohail Griffin MD R1) A/P Assessment and Plan 50-year-old man with a history of substance abuse, heavy drinking recently and remote history of snorting cocaine and heroin, presents with portal vein thrombosis. Discharge Planning Discharge pending workup of etiology of portal vein thrombosis, pain control, nausea control, volume control (Sohail Griffin MD R1) Attending Attestation Patient seen and examined. Case reviewed and discussed with the resident team. Agree with plan of care as discussed with me and documented in the resident note. (Fabienne Montez MD) Problem List: (1) Portal vein thrombosis Status: Acute Plan: Patient presents with nausea, vomiting, abdominal pain, constipation, ultrasound imaging showing portal vein thrombosis. Admit to inpatient Gastroenterology consult. Appreciate recognitions below: PLAN: - Clear liquids - Hematology consult for recommendations re: anticoagulation - Cont. Protonix - Cont. Lasix, Spironolactone - US Guided paracentesis with fluid sent for analysis - AFP level - BECCA, ASMA, AMA - Ceruloplasmin, Alpha 1 Antitrypsin - Hfe gene - D/C Toradol - D/C Motrin - EGD, timing to be determined - Supportive care - Further recommendations to follow based on results of above Anticoagulation with Lovenox 1 mg/kg every 12 hours Hepatitis profile pending, HIV pending, iron profile shows mildly elevated iron , mildly low TIBC, elevated percent saturation, elevated ferritin CBC, CMP in the morning Pain control as below: * Dilaudid 1 mg IV every 4 hours when necessary for breakthrough pain * Ibuprofen 400 mg by mouth every 6 hours when necessary for pain 1-2 * Toradol 15 mg IV push every 6 hours when necessary for pain 3-5 * Toradol 3 mg IV push every 6 hours when necessary for pain 6-10 * Tramadol 50 mg by mouth every 4 hours when necessary for pain 3-5 * Tramadol 100 mg by mouth every 4 hours when necessary for pain 6-10 Constipation control as below: * MiraLAX 17 g by mouth daily * Nancy-Colace 2 tab by mouth twice a day * Lactulose Nausea control as below: * Reglan 10 mg IV every 6 hours when necessary for nausea or vomiting * Zofran 4 mg IV push every 6 hours when necessary for nausea or vomiting * Compazine 25 mg WI every 12 hours when necessary for nausea or vomiting * Phenergan 25 mg IM every 6 hours when necessary for nausea or vomiting Diuretics increased as below: * Spironolactone 200 mg by mouth daily * Lasix 40 mg IV push twice a day Protonix 40 mg IV daily Ambien family and by mouth daily at bedtime when necessary for insomnia Monitor vital signs Strictly Monitor intake and output laboratory monitor/telemetry Administer oxygen as needed (2) Ascites Status: Acute Plan: Diuresis as above (3) Methadone dependence Status: Chronic Plan: Patient with methadone dependence. Methadone 90 mg by mouth daily; plan to wean as outpatient (4) Alcohol use Status: Chronic Plan: Patient with history of heavy drinking complaining of withdrawal symptoms. [facility] protocol (5) Tobacco use Status: Chronic Plan: Patient reports smoking about a pack per day since 13 years old and more recently about a half pack per day. Nicotine patch 14 mg patch transdermal daily (6) No contraindication to deep vein thrombosis (DVT) prophylaxis Status: Acute Plan: Anticoagulation as a treatment for portal vein thrombosis. Anticoagulation with Lovenox 1 mg/kg every 12 hours (7) Nutrition, metabolism, and development symptoms Status: Acute Plan: Fluids: Fluid restrict patient as he is currently volume overloaded Electrolytes: Monitor and replete as necessary Nutrition: Regular basic diet as tolerated GI prophylaxis: Protonix 40 mg IV daily (Sohail Griffin MD R1) Sohail Griffin MD R1 May 14, 2016 12:53 Fabienne Montez MD May 14, 2016 20:16
[2016-05-14] MEDS: METOCLOPRAMIDE HCL 10 MG/2 ML VIAL IV PRN ×2 (14:53→20:49)
[2016-05-14] MEDS ORDERED: DIATRIZOATE MEGLUM/DIATRIZOATE SOD 9 ML CUP PO ONE (20:00)
--- NOTE | 2016-05-14 20:46 | MB ---
cc: RADHA FLOWERS M.D. DATE OF CONSULTATION 05/14/2016 REASON FOR CONSULTATION A 50-year-old alcoholic male withdrawing from alcohol and methadone, found to have no flow in the portal vein near the danie hepatis on color Doppler imaging consistent with partial thrombosis. I have been asked to see him regarding recommendations for anticoagulation. PATIENT PROFILE The patient is a 50-year white male. He has been twice and twice. He was born in [place]. He has one son. He lives alone. He lost his job the last week. 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 He currently smokes six cigarettes per day and in the recent past has smoked a pack of cigarettes per day. He has approximately 8 ounces of vodka every day. HISTORY OF PRESENT ILLNESS The patient is a 50-year-old male with a longstanding history of alcoholism. He has a longstanding history of drug abuse as well and is on a methadone program taking 90 mg a day. About five or six days ago he did not have the money to buy the methadone, which he tells me costs 17 dollars a day. He has been without methadone for approximately five days prior to admission. He drank alcohol heavily during this time. He developed upper abdominal pain and constipation. He had to disimpact himself. He became very fearful that he was going to and it was the fear of dying that made him go to the emergency room. He has not used any recreational drugs for the past several years but used cocaine and other similar drugs in the past. On 05/13/2016, when seen in the emergency room he had a bilirubin of 2.6, AST 191, ALT of 60, alk phos of 536, albumin 2.4, lipase 273. Hemoglobin 13.5, white count 7000, platelets 61,000. Today the hemoglobin is 11.5, white count 6700 and platelets have dropped to 44,000 with a normal differential. He has target cells present in the peripheral smear. A serum alcohol level on 05/13/2016 was 290. Screen for opiates, barbiturates, amphetamines, benzodiazepines and cocaine in the urine where negative on 05/14/2016. PAST SURGICAL HISTORY Cervical fusion 4-5 years ago for disease involving three discs. PAST MEDICAL HISTORY 1. A history of recreational drug use including cocaine dating back many years ago. 2. Current alcoholism. 3. The patient is on a maintenance methadone program. 4. A history of radioactive iodine in approximately 2003 for what sounds like hyperthyroidism. MEDICATIONS PRIOR TO ADMISSION Methadone 90 mg a day which he has not taken for four or five days prior to the admission. ALLERGIES: DARVOCET. FAMILY HISTORY Father approximately one year ago of complications of alcoholism. Mother is living. He has a sister who is a nurse and a brother who is living and well. REVIEW OF SYSTEMS HEENT: Vision, he has glasses for reading. No problems with hearing. CARDIOVASCULAR: No chest pain, palpitations. RESPIRATORY: Minimal exertional shortness of breath. GASTROINTESTINAL: Upper abdominal pain, constipation. GENITOURINARY: No dysuria, frequency. MUSCULOSKELETAL: No bone pain. NEUROLOGICAL: Tremors. PSYCHIATRIC: Terrible anxiety. PHYSICAL EXAMINATION VITAL SIGNS: Reveals a tremulous gentleman. He looks older than his stated age. He is having mild tremors of the hands and arms and to a lesser extent legs. VITAL SIGNS: Blood pressure 130/80, respiratory rate 18, pulse 90, afebrile. O2 saturation 94%. HEENT: Head is normocephalic. Sclerae minimal icterus. NECK: There is no adenopathy. HEART: Regular rhythm. LUNGS: Clear. ABDOMEN: Soft. Distended. Minimal upper abdominal pain. EXTREMITIES: Trace edema. Muscle wasting. MUSCULOSKELETAL: Notable for the tremor. SKIN: Minimal varicosities over the anterior abdominal wall. ASSESSMENT The patient is a 50-year-old male. He is alcoholic. He is on a methadone program. He has been having withdrawal as he was not able to obtain methadone. He had episodes of abdominal pain, constipation, nausea and vomiting. He now has what appears to be portal vein thrombosis. It would not surprise me if this is an acute event. This is complicated by thrombocytopenia with his current platelet count 44,000 where yesterday with 61,000. The fall in platelet count will increase the risk of bleeding from the heparin. He is clearly not a candidate for Coumadin given his history of alcoholism. He is not a candidate for factor Xa inhibitors under these circumstances as well. My recommendation, if this can be carried out, would be three months of Lovenox. At the moment I will reduce the dose of Lovenox from 90 to 60 mg q.12h because of the progressive thrombocytopenia. If the platelet count falls below 40,000 then I would hold the Lovenox. I do not think at this point we need to do a hypercoagulable workup. I believe that his current situation is explained by the alcohol, acute withdrawal and probable degree of dehydration at some point from his nausea and vomiting. PLAN 1. I have ordered a CT abdomen with contrast for further visualization of the abdomen and the portal vein. 2. I have decreased the Lovenox to 60 q.12h. 3. At the moment I would consider holding on a paracentesis given that he is fully anticoagulated and has thrombocytopenia. This can be done at a later date. 4. CBC and platelet count tomorrow. 5. He is a social nightmare and his behavior is likely to lead to a premature . Case management has been consulted and once the immediate issues have been resolved, he would probably do well in a drug rehab program. He will also need money to buy the methadone as he will have withdrawal when he does not take the methadone. The purpose of the Lovenox will be to prevent progression of the clot causing ischemia to small bowel. It is difficult to determine the risk of this happening. I am not even sure that he will be able to self inject Lovenox safely for three months unless there is a major change in his behavior. I would not be comfortable giving him oral anticoagulants. MD INGE Wagoner/AN /7:53 PM /8:11 PM CYNTHIA
[2016-05-14] MEDS: ENOXAPARIN SODIUM 60 MG/0.6 ML SYRINGE SQ SCH (20:53)
[2016-05-15] VITALS (8 sets, daily range): BP systolic 122–138; BP diastolic 62–91; PULSE 94–105; RESP 17–20; TEMP 97.7–98.6; O2SAT 93–96
[2016-05-15] MEDS: LORazepam 2 MG/ML VIAL IV PUSH PRN ×6 (01:12→22:48)
[2016-05-15] MEDS ORDERED: IOHEXOL 350 MG/ML 10 ML VIAL (for RAD DIAG) IV ONE (01:29)
--- NOTE | 2016-05-15 02:00 | RADRPT ---
EXAM DATE/TIME: 05/15/2016 01:27 [facility] COMPARISON: No previous studies available for comparison. INDICATIONS : Abdomen pain. Possible portal vein thrombosis. Abnormal ultrasound. IV CONTRAST: 95 cc Omnipaque 350 (iohexol) IV ORAL CONTRAST: Prescribed oral contrast ingested. RADIATION DOSE: 15.24 CTDIvol (mGy) MEDICAL HISTORY : Cardiovascular disease. Hypertension. Diabetes mellitus type 2. SURGICAL HISTORY : None. ENCOUNTER: Initial ACUITY: 2 days PAIN SCALE: 5/10 LOCATION: upper abdomen TECHNIQUE: Volumetric scanning of the abdomen was performed. Using automated exposure control and adjustment of the mA and/or kV according to patient size, radiation dose was kept as low as reasonably achievable to obtain optimal diagnostic quality images. FINDINGS: LOWER LUNGS: Tiny bilateral pleural effusions with associated mild atelectasis. LIVER: The liver is diffusely low in attenuation. 2 tiny low attenuation foci are seen involving the left lo be. These are less than 5 mm in size. No ductal dilatation. The portal vein is patent. There is recan nulization of the paraumbilical vein. A gallbladder contains several small calcified stones. It is we ll distended but without gallbladder wall thickening. A small volume of ascitic fluid is seen scatter ed throughout the abdomen. SPLEEN: Normal size without lesion. PANCREAS: Within normal limits. KIDNEYS: Normal in size and shape. There is no mass, stone, or hydronephrosis. ADRENAL GLANDS: Within normal limits. AORTA/RETROPERITONEAL: There is no aneurysm or lymphadenopathy. BOWEL/MESENTERY: The stomach and visualized small and large bowel demonstrate no abnormality. ABDOMINAL WALL: Within normal limits. MUSCULOSKELETAL: Within normal limits for patient age. POST CONTRAST: No abnormal areas of enhancement are seen. CONCLUSION: 1. Patent portal vein. 2. Recannulization of the periumbilical vein suggesting portal hypertension. 3. Hepatic steatosis. 4. Tiny bilateral pleural effusions and small volume ascites. 5. Cholelithiasis. 6. 2 tiny low attenuation lesions involving the liver. These are too small to accurately characterize with CT. They may simply relate to cysts or hemangiomas. Estrada Woo Jr., MD on May 15, 2016 at 1:55 Board Certified Radiologist. This report was verified electronically.
[2016-05-15] MEDS: ONDANSETRON HCL 4 MG/2 ML VIAL IVP PRN (05:44)
[2016-05-15 06:55] LABS: INTERNATIONAL NORMALIZED RATIO 1.5 RATIO; PROTHROMBIN TIME - PATIENT 16.6 SEC (9.8-11.6)
[2016-05-15 07:07] LABS: AUTOMATED NEUTROPHIL # 3.1 TH/MM3 (1.8-7.7); BASOPHIL % 0.8 % (0.0-2.0); EOSINOPHIL # 0.1 TH/MM3 (0-0.4); EOSINOPHIL % 1.3 % (0.0-4.0); HEMATOCRIT 32.5 % (39.0-51.0); LYMPH % 22.5 % (9.0-44.0); LYMPHOCYTE # 1.1 TH/MM3 (1.0-4.8); MEAN CORPUSCULAR HEMOGLOBIN 36.5 PG (27.0-34.0); MEAN CORPUSCULAR HGB CONC 35.5 % (32.0-36.0); MONO % 13.7 % (0.0-8.0); NEUT % 61.7 % (16.0-70.0); PLATELET COUNT 35 TH/MM3 (150-450); RED BLOOD COUNT 3.15 MIL/MM3 (4.50-5.90); RED CELL DISTRIBUTION WIDTH 19.1 % (11.6-17.2)
[2016-05-15 07:12] LABS: ALKALINE PHOSPHATASE 455 U/L (45-117); ALT (GPT) 42 U/L (12-78); ANION GAP 10 MEQ/L (5-15); AST (GOT) 138 U/L (15-37); BICARBONATE 33.7 MEQ/L (21.0-32.0); BLOOD UREA NITROGEN 9 MG/DL (7-18); CHLORIDE 89 MEQ/L (98-107); GLOMERULAR FILTRATION RATE 94 ML/MIN (>89); POTASSIUM 3.3 MEQ/L (3.5-5.1); SODIUM (NA) 133 MEQ/L (136-145); TOTAL BILIRUBIN ADULT 4.3 MG/DL (0.2-1.0)
[2016-05-15 07:13] LABS: HEMO FLAGS AUTO DIFF
[2016-05-15] MEDS: ENOXAPARIN SODIUM 60 MG/0.6 ML SYRINGE SQ SCH (08:00)
[2016-05-15] MEDS: POLYETHYLENE GLYCOL 17 GM PKG PO SCH (08:18)
[2016-05-15] MEDS: NICOTINE 14 MG/24 HR PATCH TD SCH (08:18)
[2016-05-15] MEDS: SPIRONOLACTONE 100 MG TAB PO SCH (08:18)
[2016-05-15] MEDS: DOCUSATE SODIUM 50 MG/SENNA 8.6 MG TAB PO SCH ×2 (08:18→21:08)
[2016-05-15] MEDS: METHADONE HCL 10 MG TAB PO SCH (08:18)
[2016-05-15] MEDS: FUROSEMIDE 20 MG/2 ML VIAL IV PUSH SCH ×2 (08:19→18:05)
[2016-05-15] MEDS: PANTOPRAZOLE SODIUM 40 MG VIAL IV SCH (08:19)
[2016-05-15] MEDS: SODIUM CHLORIDE 0.9% FLUSH 5 ML FLUSH FLUSH SCH ×2 (08:19→21:08)
[2016-05-15] MEDS: METOCLOPRAMIDE HCL 10 MG/2 ML VIAL IV PRN (08:30)
[2016-05-15 09:17] LABS: SCAN/DIFF AUTO DIFF CONFIRMED
[2016-05-15 09:18] LABS: TARGET CELLS 1+ (NORMAL)
[2016-05-15] MEDS ORDERED: POTASSIUM CHLORIDE 10 MEQ CAP PO ONE (09:30)
--- NOTE | 2016-05-15 09:36 | HHI.FPPN ---
Subjective Remarks Resident team called overnight because patient apparently fell, was found on all fours on the ground in his room. Overnight, patient had pulse in the 90s, pulse ox 94-97% on room air, but otherwise afebrile and vital signs stable. Patient's chief complaint this morning is back pain. He reports that his withdrawal symptoms or doing better. He also believes that his abdominal distention is getting better because he can sit forward more comfortably now. ( Sohail Griffin MD R1) Objective Vitals Vital Signs Date Time Temp Pulse Resp B/P Pulse Ox O2 Delivery O2 Flow Rate FiO2 05/15/16 08:00 98.4 94 18 132/78 95 05/15/16 04:47 98.6 96 20 130/84 94 05/15/16 03:00 98.6 95 18 122/71 95 05/14/16 23:58 97.6 97 18 136/58 97 05/14/16 20:00 97.6 98 19 136/84 95 05/14/16 18:31 94 21 05/14/16 12:00 97.8 98 18 132/78 94 I/O 05/14/16 05/14/16 05/14/16 05/15/16 05/15/16 05/15/16 06:59 14:59 22:59 06:59 14:59 22:59 Intake Total 960 ml 0 ml 360 ml 360 ml Output Total 550 ml 750 ml 600 ml 1150 ml Balance 410 ml -750 ml -240 ml -790 ml Intake Oral 960 ml 0 ml 360 ml 360 ml IV Total 0 ml 0 ml Output Urine Total 550 ml 750 ml 600 ml 1150 ml # Bowel Movements 0 0 0 0 (Sohail Griffin MD R1) Result Diagram: 05/15/16 0439 05/15/16 0439 Imaging Last Impressions Abdomen CT 05/15/16 0000 Signed Impressions: Service Date/Time: Sunday, May 15, 2016 01:27 - CONCLUSION: 1. Patent portal vein. 2. Recannulization of the periumbilical vein suggesting portal hypertension. 3. Hepatic steatosis. 4. Tiny bilateral pleural effusions and small volume ascites. 5. Cholelithiasis. 6. 2 tiny low attenuation lesions involving the liver. These are too small to accurately characterize with CT. They may simply relate to cysts or hemangiomas. Estrada Woo Jr., MD Liver Ultrasound 05/13/16 0000 Signed Impressions: Service Date/Time: Friday, May 13, 2016 10:49 - CONCLUSION: 1. Moderate ascites in all 4 quadrants. 2. Hepatosplenomegaly with hepatofugal flow within the main portal vein and 3. Cholelithiasis. 4. There is no documented flow in the main portal vein near the danie hepatis on color Doppler imaging consistent with partial thrombosis. Dayton Hart MD Objective Remarks O. CONSTITUTIONAL/GEN: normally nourished patient lying in bed with eyes closed in no acute distress, still tremulous. EYES: Possible Rodgers Mayela rings, conjunctiva normal, PERRLA, EOMI. ENT: Moist Mucous membranes, dentition with evidence of bruxism NECK: thyroid midline, carotids symmetrical. LUNGS: clear to auscultation bilaterally with no crackles appreciated, respiratory effort is normal. CARDIOVASCULAR: RRR without murmur or gallop. Improving trace edema in lower extremities. GI/ABD: protuberant with fluid wave, soft and nontender without masses. NEURO: No focal deficits. Tremulous SKIN: somewhat bronze with scattered spider angiomata. HEME/LYMPH: no bruising, petechia or significant adenopathy MUSC: back is normal in appearance. Extremities are normal in appearance except for the trace edema PSYCH/MENTAL STATUS: Alert and oriented x 3. (Sohail Griffin MD R1) A/P Assessment and Plan 50-year-old man with a history of substance abuse, heavy drinking recently and remote history of snorting cocaine and heroin, presents with portal vein thrombosis. Iron studies concerning for hemachromatosis, possible Rodgers Mayela rings concerning for Dieudonne's disease, workup still pending. Discharge Planning Discharge pending workup of etiology of portal vein thrombosis, pain control, nausea control, volume control, recommendations from GI and hematology (Sohail Griffin MD R1) Attending Attestation Patient seen and examined. Case reviewed and discussed with the resident team. Agree with plan of care as discussed with me and documented in the resident note. (Fabienne Montez MD) Problem List: (1) Portal vein thrombosis Status: Acute Plan: Patient presents with nausea, vomiting, abdominal pain, constipation, ultrasound imaging showing portal vein thrombosis. Admit to inpatient Gastroenterology consult. Appreciate recommendations below: PLAN: - Low sodium diet - Anticoagulation per hematology - Cont. Protonix - Cont. Lasix, Spironolactone - Await BECCA, ASMA, AMA - Await Ceruloplasmin, Alpha 1 Antitrypsin - Await Hfe gene - D/C Toradol - D/C Motrin - Supportive care - Consider EGD prior to d/c - Further recommendations to follow based on results of above - PT seen and examined by Dr. Kimball and myself and this note is written on his behalf Hematology consult. Appreciate recommendations below: -CT abdomen with IV contrast showed patent portal vein, recannulization of the periumbilical vein suggesting portal hypertension, hepatic steatosis, tiny bilateral pleural effusions small volume ascites, cholelithiasis, 2 tiny low- attenuation lesions involving the liver that are too small to accurately characterize a CT, which may be cysts or hemangiomas. -Lovenox 60 mg every 12 hours -Hold off on paracentesis given his low platelets and anticoagulation Anticoagulation with Lovenox 60 mg every 12 hours currently on hold for platelets of 35. The recommendation is to hold Lovenox if platelets are less than 40. Hepatitis profile pending, HIV pending, iron profile shows mildly elevated iron , mildly low TIBC, elevated percent saturation, elevated ferritin CBC, CMP in the morning Pain control as below: * Dilaudid 1 mg IV every 4 hours when necessary for breakthrough pain * Ibuprofen 400 mg by mouth every 6 hours when necessary for pain 1-2 * Toradol 15 mg IV push every 6 hours when necessary for pain 3-5 * Toradol 3 mg IV push every 6 hours when necessary for pain 6-10 * Tramadol 50 mg by mouth every 4 hours when necessary for pain 3-5 * Tramadol 100 mg by mouth every 4 hours when necessary for pain 6-10 Constipation control as below: * MiraLAX 17 g by mouth daily * Nancy-Colace 2 tab by mouth twice a day * Lactulose Nausea control as below: * Reglan 10 mg IV every 6 hours when necessary for nausea or vomiting * Zofran 4 mg IV push every 6 hours when necessary for nausea or vomiting * Compazine 25 mg NE every 12 hours when necessary for nausea or vomiting * Phenergan 25 mg IM every 6 hours when necessary for nausea or vomiting Diuretics increased as below: * Spironolactone 200 mg by mouth daily * Lasix 40 mg IV push twice a day Protonix 40 mg IV daily Ambien 5 mg by mouth daily at bedtime when necessary for insomnia Monitor vital signs Strictly Monitor intake and output 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 Methadone 90 mg by mouth daily; plan to wean as outpatient (4) Alcohol use Status: Chronic Plan: Patient with history of heavy drinking complaining of withdrawal symptoms. CIWA scores since admission: 1, 8, 8, 8, 9, 10, 9, 5, 8, 9 CIWA protocol (5) Tobacco use Status: Chronic Plan: Patient reports smoking about a pack per day since 13 years old and more recently about a half pack per day. Nicotine patch 14 mg patch transdermal daily (6) No contraindication to deep vein thrombosis (DVT) prophylaxis Status: Acute Plan: Anticoagulation as a treatment for portal vein thrombosis. Anticoagulation with Lovenox 60 mg every 12 hours currently on hold for platelets of 35. The recommendation is to hold Lovenox for platelets under 40. (7) Nutrition, metabolism, and development symptoms Status: Acute Plan: Fluids: Fluid restrict patient as he is currently volume overloaded Electrolytes: Monitor and replete as necessary Nutrition: Regular basic diet as tolerated GI prophylaxis: Protonix 40 mg IV daily (Sohail Griffin MD R1) Sohail Griffin MD R1 May 15, 2016 09:36 Fabienne Montez MD May 15, 2016 15:38
--- NOTE | 2016-05-15 11:50 | HHI.GIFU ---
Subjective Remarks Sitting up in bed in no distress. Mother is at the bedside. No GI bleeding. Denies any nausea vomiting or abdominal pain. Discussed with patient the importance of complete alcohol cessation and he verbalizes understanding. ( Ester Martínez) Objective Vitals I&O Vital Signs Date Time Temp Pulse Resp B/P Pulse Ox O2 Delivery O2 Flow Rate FiO2 05/15/16 08:00 98.4 94 18 132/78 95 05/15/16 04:47 98.6 96 20 130/84 94 05/15/16 03:00 98.6 95 18 122/71 95 05/14/16 23:58 97.6 97 18 136/58 97 05/14/16 20:00 97.6 98 19 136/84 95 05/14/16 18:31 94 21 05/14/16 12:00 97.8 98 18 132/78 94 I/O 05/14/16 05/14/16 05/14/16 05/15/16 05/15/16 05/15/16 07:00 15:00 23:00 07:00 15:00 23:00 Intake Total 960 ml 0 ml 360 ml 360 ml Output Total 550 ml 750 ml 600 ml 1150 ml Balance 410 ml -750 ml -240 ml -790 ml Intake Oral 960 ml 0 ml 360 ml 360 ml IV Total 0 ml 0 ml Output Urine Total 550 ml 750 ml 600 ml 1150 ml # Bowel Movements 0 0 0 0 Laboratory Laboratory Tests Test 05/15/16 04:39 White Blood Count 5.0 Red Blood Count 3.15 Hemoglobin 11.5 Hematocrit 32.5 Mean Corpuscular Volume 103.0 Mean Corpuscular Hemoglobin 36.5 Mean Corpuscular Hemoglobin 35.5 Concent Red Cell Distribution Width 19.1 Platelet Count 35 Mean Platelet Volume 9.2 Neutrophils (%) (Auto) 61.7 Lymphocytes (%) (Auto) 22.5 Monocytes (%) (Auto) 13.7 Eosinophils (%) (Auto) 1.3 Basophils (%) (Auto) 0.8 Neutrophils # (Auto) 3.1 Lymphocytes # (Auto) 1.1 Monocytes # (Auto) 0.7 Eosinophils # (Auto) 0.1 Basophils # (Auto) 0.0 CBC Comment AUTO DIFF Differential Comment AUTO DIFF CONFIRMED Target Cells 1+ Prothrombin Time 16.6 Prothromb Time International 1.5 Ratio Sodium Level 133 Potassium Level 3.3 Chloride Level 89 Carbon Dioxide Level 33.7 Anion Gap 10 Blood Urea Nitrogen 9 Creatinine 0.86 Estimat Glomerular Filtration 94 Rate Random Glucose 87 Calcium Level 7.8 Total Bilirubin 4.3 Aspartate Amino Transf 138 (AST/SGOT) Alanine Aminotransferase 42 (ALT/SGPT) Alkaline Phosphatase 455 Total Protein 7.3 Albumin 2.1 Imaging Last Impressions Abdomen CT 05/15/16 0000 Signed Impressions: Service Date/Time: Sunday, May 15, 2016 01:27 - CONCLUSION: 1. Patent portal vein. 2. Recannulization of the periumbilical vein suggesting portal hypertension. 3. Hepatic steatosis. 4. Tiny bilateral pleural effusions and small volume ascites. 5. Cholelithiasis. 6. 2 tiny low attenuation lesions involving the liver. These are too small to accurately characterize with CT. They may simply relate to cysts or hemangiomas. Estrada Woo Jr., MD Liver Ultrasound 05/13/16 0000 Signed Impressions: Service Date/Time: Friday, May 13, 2016 10:49 - CONCLUSION: 1. Moderate ascites in all 4 quadrants. 2. Hepatosplenomegaly with hepatofugal flow within the main portal vein and 3. Cholelithiasis. 4. There is no documented flow in the main portal vein near the danie hepatis on color Doppler imaging consistent with partial thrombosis. Dayton Hart MD Physical Exam HEENT: Normocephalic; atraumatic; no jaundice. Throat is clear. NECK: Neck is supple, no JVD, no lymphadenopathy. CHEST: CTA CARDIAC: RRR ABDOMEN: Soft, nondistended, nontender; hepatosplenomegaly; bowel sounds are present in all four quadrants. Ascites EXTREMITIES: No clubbing, cyanosis, or edema. SKIN: Normal; no rash; no jaundice. SPECIAL OFFICER [employer]OMAT: No focal deficits; alert and oriented times three. (Ester Martínez) Assessment and Plan Plan ASSESSMENT: - Portal vein thrombosis. Unclear if this is acute or chronic. He has never been diagnosed with liver cirrhosis although he does have evidence of liver disease on labs. However, at the same time, he seems to have sudden decompensation over the past week with ascites and confusion. He was started on lovenox by primary team. But he has ongoing ETOH abuse and thrombocytopenia. Hematology is following and has patient on anticoagulation at reduced dosing. - Confusion. Ammonia 13. Improved. - Ascites, new onset. Moderate ascites all quadrants. Hematology has recommended not to proceed with paracentesis at this time secondary to anticoagulation and thrombocytopenia. Spironolactone and Lasix - Nausea, vomiting, abdominal pain x 6 days per patient. Improved at this time. - GERD. States he takes Ranitidine but still has breakthrough symptoms - Constipation. Lactulose - Anemia with drop in Hgb but no evidence of blood loss. H&H stable at 11.5/ 32.5. EGD when able. - Coaguloapathy, Thrombocytopenia. PT 15.2, INR 1.4, Plt 44 - Elevated LFTs, alcoholic hepatitis, ?underlying liver cirrhosis. Never been dx with cirrhosis although hx of ETOH abuse and drug abuse. Father from liver failure, cirrhosis- unclear if this was related to ETOH or other liver disease. Iron saturation 94.5%, Liver Ultrasound (05/13/16) revealed 1. Moderate ascites in all 4 quadrants. 2. Hepatosplenomegaly with hepatofugal flow within the main portal vein and 3. Cholelithiasis. 4. There is no documented flow in the main portal vein near the danie hepatis on color Doppler imaging consistent with partial thrombosis T. Bili 4.3, AST 138, ALT 42, Alk Phosph 455. Hepatitis profile negative. AFP 2.5, alpha-1 anti-trypsin pending, Ceruloplasmin pending, iron saturation 94.5%, hereditary hemochromatosis gene pending, BECCA pending, ASMA pending, AMA pending - Elevated Iron Saturation. Will get Hfe. PLAN: - Low sodium diet - Anticoagulation per hematology - Cont. Protonix - Cont. Lasix, Spironolactone - Await BECCA, ASMA, AMA - Await Ceruloplasmin, Alpha 1 Antitrypsin - Await Hfe gene - D/C Toradol - D/C Motrin - Supportive care - Consider EGD prior to d/c - Further recommendations to follow based on results of above - PT seen and examined by Dr. Kimball and myself and this note is written on his behalf (Ester Martínez) Physician Comments Patient was seen and examined, agree with above note and plan, labs for AM, guarded prognosis. (Sushil Kimball MD) Ester Martínez May 15, 2016 11:50 Sushil Kimball MD May 15, 2016 20:27
--- NOTE | 2016-05-15 19:30 | PD.ONC.PN ---
Subjective Subjective Remarks feeling a little better but still with withdrawal Objective Data Date Time Temp Pulse Resp B/P Pulse Ox O2 Delivery O2 Flow Rate FiO2 05/15/16 18:42 21 05/15/16 16:00 97.7 100 18 122/62 94 05/15/16 14:20 93 05/15/16 12:00 98.0 104 17 138/91 96 05/15/16 08:00 98.4 94 18 132/78 95 05/15/16 04:47 98.6 96 20 130/84 94 05/15/16 03:00 98.6 95 18 122/71 95 05/14/16 23:58 97.6 97 18 136/58 97 05/14/16 20:00 97.6 98 19 136/84 95 05/15/16 05/15/16 05/15/16 07:00 15:00 23:00 Intake Total 360 ml 325 ml Output Total 1150 ml 775 ml Balance -790 ml -450 ml Result Diagram: 05/15/16 0439 05/15/16 0439 Laboratory Results Laboratory Tests Test 05/15/16 04:39 White Blood Count 5.0 TH/MM3 Red Blood Count 3.15 MIL/MM3 Hemoglobin 11.5 GM/DL Hematocrit 32.5 % Mean Corpuscular Volume 103.0 FL Mean Corpuscular Hemoglobin 36.5 PG Mean Corpuscular Hemoglobin 35.5 % Concent Red Cell Distribution Width 19.1 % Platelet Count 35 TH/MM3 Mean Platelet Volume 9.2 FL Neutrophils (%) (Auto) 61.7 % Lymphocytes (%) (Auto) 22.5 % Monocytes (%) (Auto) 13.7 % Eosinophils (%) (Auto) 1.3 % Basophils (%) (Auto) 0.8 % Neutrophils # (Auto) 3.1 TH/MM3 Lymphocytes # (Auto) 1.1 TH/MM3 Monocytes # (Auto) 0.7 TH/MM3 Eosinophils # (Auto) 0.1 TH/MM3 Basophils # (Auto) 0.0 TH/MM3 CBC Comment AUTO DIFF Differential Comment AUTO DIFF CONFIRMED Target Cells 1+ Prothrombin Time 16.6 SEC Prothromb Time International 1.5 RATIO Ratio Sodium Level 133 MEQ/L Potassium Level 3.3 MEQ/L Chloride Level 89 MEQ/L Carbon Dioxide Level 33.7 MEQ/L Anion Gap 10 MEQ/L Blood Urea Nitrogen 9 MG/DL Creatinine 0.86 MG/DL Estimat Glomerular Filtration 94 ML/MIN Rate Random Glucose 87 MG/DL Calcium Level 7.8 MG/DL Total Bilirubin 4.3 MG/DL Aspartate Amino Transf 138 U/L (AST/SGOT) Alanine Aminotransferase 42 U/L (ALT/SGPT) Alkaline Phosphatase 455 U/L Total Protein 7.3 GM/DL Albumin 2.1 GM/DL Imaging Studies Last [address] 05/15/16 0000 Signed Impressions: Service Date/Time: Sunday, May 15, 2016 01:27 - CONCLUSION: 1. Patent portal vein. 2. Recannulization of the periumbilical vein suggesting portal hypertension. 3. Hepatic steatosis. 4. Tiny bilateral pleural effusions and small volume ascites. 5. Cholelithiasis. 6. 2 tiny low attenuation lesions involving the liver. These are too small to accurately characterize with CT. They may simply relate to cysts or hemangiomas. Estrada Woo Jr., MD Administered Medications Medications (Trade) Dose Ordered Sig/Laurie Route PRN Reason Start Time Stop Time Status Last Admin Dose Admin Lorazepam (Ativan Inj) 1 mg Q4H PRN IV PUSH CIWA 8 - 10 05/13/16 12:45 05/15/16 18:06 Lorazepam (Ativan Inj) 2 mg Q2H PRN IV PUSH CIWA 11-14 05/13/16 12:45 05/13/16 17:06 Lorazepam (Ativan Inj) 2 mg Q1H PRN IV PUSH CIWA 15-20 05/13/16 12:45 05/13/16 14:53 IV Flush (NS Flush) 2 ml BID FLUSH 05/13/16 21:00 05/15/16 08:19 Ondansetron HCl (Zofran Inj) 4 mg Q6H PRN IVP NAUSEA OR VOMITING 05/13/16 14:45 05/15/16 05:44 Methadone HCl (Dolophine) 90 mg DAILY PO 05/13/16 16:00 05/15/16 08:18 Metoclopramide HCl (Reglan Inj) 10 mg Q6H PRN IV NAUSEA OR VOMITING 05/13/16 15:00 05/15/16 08:30 Pantoprazole Sodium (Protonix Inj) 40 mg DAILY IV 05/14/16 09:00 05/15/16 08:19 Senna/Docusate Sodium (Nancy-Colace) 2 tab BID PO 05/13/16 21:30 05/15/16 08:18 Polyethylene Glycol (Miralax) 17 gm DAILY PO 05/14/16 09:00 05/15/16 08:18 Nicotine (Habitrol 14 Mg Patch.24 Hr) 1 patch DAILY TD 05/14/16 09:00 05/15/16 08:18 Furosemide (Lasix Inj) 40 mg BID@09,18 IV PUSH 05/14/16 09:00 05/15/16 18:05 Spironolactone (Aldactone) 200 mg DAILY PO 05/14/16 09:00 05/15/16 08:18 Enoxaparin Sodium (Lovenox Inj) 60 mg Q12H SQ 05/14/16 20:00 Hold 05/14/16 20:53 Objective Remarks GENERAL: anxious SKIN: Warm and dry. HEAD: Normocephalic. EYES: slight icterus NECK: Supple, trachea midline. No JVD or lymphadenopathy. LYMPHATIC: No adenopathy. CARDIOVASCULAR: Regular rate and rhythm without murmurs. RESPIRATORY: Breath sounds equal bilaterally. No accessory muscle use. GASTROINTESTINAL: mild distention with minimal upper abd tenderness EXTREMITIES: No cyanosis, or edema. MUSCULOSKELETAL: poor muscle tone. NEUROLOGICAL: No obvious focal deficit. Awake, alert, and oriented x3. PSYCHIATRIC: Anxious. Assessment/Plan Assessment 1: portal vein is open on ct of abd with contrast and suspect this is more accurate then the ultrasound. Possibilities are he never had portal vein thrombosis or he had it and it has fully resolved in several days. Platelets are low and given the current situation would treat with prophylactic Lovenox 40 mg daily until discharge and not beyond. Will hold Lovenox if platelets < 30,000. have ordered cbc plat daily and Lovenox 40 daily. platelets will rebound and current count is due to acute etoh but will check fibrinogen for DIC. Zelalem Villafana MD May 15, 2016 19:29
[2016-05-15] MEDS: ENOXAPARIN SODIUM 40 MG/0.4 ML SYRINGE SQ SCH (21:08)
[2016-05-15 23:55] LABS: MITOCHONDRIAL ABS LESS THAN 20.0 U (())
[2016-05-16] VITALS (8 sets, daily range): BP systolic 114–127; BP diastolic 69–87; PULSE 78–99; RESP 16–20; TEMP 97.2–99.3; O2SAT 92–95
[2016-05-16] MEDS: LORazepam 2 MG/ML VIAL IV PUSH PRN ×2 (03:05→06:17)
[2016-05-16 06:15] LABS: HEMATOCRIT 32.8 % (39.0-51.0); MEAN CELL VOLUME 103.6 FL (80.0-100.0); MEAN CORPUSCULAR HEMOGLOBIN 35.8 PG (27.0-34.0); MEAN CORPUSCULAR HGB CONC 34.6 % (32.0-36.0); PLATELET COUNT 43 TH/MM3 (150-450); RED BLOOD COUNT 3.17 MIL/MM3 (4.50-5.90); RED CELL DISTRIBUTION WIDTH 19.5 % (11.6-17.2); WHITE BLOOD COUNT 3.6 TH/MM3 (4.0-11.0)
[2016-05-16 06:23] LABS: APTT (PATIENT) 33.4 SEC (24.3-30.1); INTERNATIONAL NORMALIZED RATIO 1.4 RATIO; PROTHROMBIN TIME - PATIENT 16.1 SEC (9.8-11.6)
[2016-05-16 06:36] LABS: REVIEW FLAG FINAL
[2016-05-16 07:08] LABS: ALKALINE PHOSPHATASE 377 U/L (45-117); ALT (GPT) 38 U/L (12-78); ANION GAP 6 MEQ/L (5-15); AST (GOT) 114 U/L (15-37); BICARBONATE 29.7 MEQ/L (21.0-32.0); BLOOD UREA NITROGEN 12 MG/DL (7-18); CHLORIDE 97 MEQ/L (98-107); GLOMERULAR FILTRATION RATE 82 ML/MIN (>89); POTASSIUM 3.7 MEQ/L (3.5-5.1); SODIUM (NA) 133 MEQ/L (136-145); TOTAL BILIRUBIN ADULT 3.6 MG/DL (0.2-1.0)
--- NOTE | 2016-05-16 08:51 | HHI.FPPN ---
Subjective Remarks Patient reports he is doing better this morning. His swelling in the abdomen and his legs has gone down. No belly pain. He had a bowel movement. No fever , chills, shortness of breath, chest pain, headache. (Cosme Montez MD R2) Objective Vitals Vital Signs Date Time Temp Pulse Resp B/P Pulse Ox O2 Delivery O2 Flow Rate FiO2 05/16/16 08:00 98.7 99 18 118/77 92 05/16/16 04:00 97.4 78 19 127/87 95 05/16/16 00:00 97.6 79 20 120/70 95 05/15/16 20:05 103 05/15/16 20:00 98.6 105 18 124/77 95 05/15/16 18:42 21 05/15/16 16:00 97.7 100 18 122/62 94 05/15/16 14:20 93 05/15/16 12:00 98.0 104 17 138/91 96 I/O 05/15/16 05/15/16 05/15/16 05/16/16 05/16/16 05/16/16 06:59 14:59 22:59 06:59 14:59 22:59 Intake Total 360 ml 325 ml 360 ml 360 ml Output Total 1150 ml 775 ml 400 ml 300 ml Balance -790 ml -450 ml -40 ml 60 ml Intake Oral 360 ml 325 ml 360 ml 360 ml IV Total 0 ml 0 ml 0 ml Output Urine Total 1150 ml 775 ml 400 ml 300 ml # Voids 2 # Bowel Movements 0 1 1 5 (Cosme Montez MD R2) Result Diagram: 05/16/16 0553 05/16/16 0553 Objective Remarks O. CONSTITUTIONAL/GEN: Lying comfortably in bed. No acute distress. EYES: PERRLA, EOMI. LUNGS: clear to auscultation bilaterally with no crackles appreciated, respiratory effort is normal. CARDIOVASCULAR: RRR without murmur or gallop. Improving trace edema in lower extremities. GI/ABD: Decreased ascites. Nontender to palpation. Positive bowel sounds NEURO: No focal deficits. Improved tremors SKIN: somewhat bronze with scattered spider angiomata. Right axillary 10 x 5 cm bruise MUSC: back is normal in appearance. Extremities are normal in appearance except for the trace edema PSYCH/MENTAL STATUS: Alert and oriented x 3. (Cosme Montez MD R2) A/P Assessment and Plan 50-year-old man with a history of substance abuse, heavy drinking recently and remote history of snorting cocaine and heroin, presents with portal vein thrombosis. Iron studies concerning for hemachromatosis. GI and hematology consult. Plan as below. Discharge Planning Discharge pending workup of etiology of portal vein thrombosis, pain control, nausea control, volume control, recommendations from GI and hematology (Cosme Montez MD R2) Attending Attestation Patient seen and examined. Case reviewed and discussed with the resident team. Agree with plan of care as discussed with me and documented in the resident note. (Fabienne Montez MD) Problem List: (1) Ascites Status: Acute Plan: Gastroenterology consult. Appreciate recommendations below: Hematology consult. Appreciate recommendations below: PLAN: - Low sodium diet - Anticoagulation per hematology; currently Lovenox 40 mg subcutaneous every 24 hours. Hold for platelets less than 30,000. - Cont. Protonix - Cont. Lasix, Spironolactone - Await BECCA, ASMA, AMA - Await Ceruloplasmin, Alpha 1 Antitrypsin - Await Hfe gene - Supportive care - Consider EGD prior to d/c CBC, CMP in the morning Pain control as below: * Methadone 90 mg by mouth daily * Dilaudid 1 mg IV every 4 hours when necessary for breakthrough pain * Tramadol 50 mg by mouth every 4 hours when necessary for pain 3-5 * Tramadol 100 mg by mouth every 4 hours when necessary for pain 6-10 Constipation: * MiraLAX 17 g by mouth daily * Nancy-Colace 2 tab by mouth twice a day * Lactulose Nausea: * Reglan 10 mg IV every 6 hours when necessary for nausea or vomiting * Zofran 4 mg IV push every 6 hours when necessary for nausea or vomiting * Compazine 25 mg LA every 12 hours when necessary for nausea or vomiting * Phenergan 25 mg IM every 6 hours when necessary for nausea or vomiting Diuretics: * Spironolactone 200 mg by mouth daily * Lasix 40 mg IV push twice a day Protonix 40 mg IV daily History: -CT abdomen with IV contrast showed patent portal vein, recannulization of the periumbilical vein suggesting portal hypertension, hepatic steatosis, tiny bilateral pleural effusions small volume ascites, cholelithiasis, 2 tiny low- attenuation lesions involving the liver that are too small to accurately characterize a CT, which may be cysts or hemangiomas. Hepatitis profile negative, HIV negative, iron profile shows mildly elevated iron, mildly low TIBC, elevated percent saturation, elevated ferritin - D/C Toradol - D/C Motrin (2) Methadone dependence Status: Chronic Plan: Patient with methadone dependence. Methadone 90 mg by mouth daily; plan to wean as outpatient (3) Alcohol use Status: Chronic Plan: Patient with history of heavy drinking complaining of withdrawal symptoms. CICO protocol (4) Tobacco use Status: Chronic Plan: Patient reports smoking about a pack per day since 13 years old and more recently about a half pack per day. Nicotine patch 14 mg patch transdermal daily (5) No contraindication to deep vein thrombosis (DVT) prophylaxis Status: Acute Plan: Per hematology- Lovenox 40 mg q24 hours. Hold for plt<30,000 (6) Nutrition, metabolism, and development symptoms Status: Acute Plan: Fluids: Fluid restrict patient as he is currently volume overloaded Electrolytes: Monitor and replete as necessary Nutrition: Regular basic diet as tolerated GI prophylaxis: Protonix 40 mg IV daily DVT ppx: lovenox 40 mg sq q 24 hours; hold if plt <30,000 per hematology (7) Portal vein thrombosis Status: Resolved (Cosme Montez MD R2) Cosme Montez MD R2 May 16, 2016 08:51 Fabienne Montez MD May 16, 2016 20:04
[2016-05-16] MEDS: PANTOPRAZOLE SODIUM 40 MG VIAL IV SCH (08:56)
[2016-05-16] MEDS: DOCUSATE SODIUM 50 MG/SENNA 8.6 MG TAB PO SCH ×2 (08:57→22:33)
[2016-05-16] MEDS: POLYETHYLENE GLYCOL 17 GM PKG PO SCH (08:57)
[2016-05-16] MEDS: SPIRONOLACTONE 100 MG TAB PO SCH (08:57)
[2016-05-16] MEDS: NICOTINE 14 MG/24 HR PATCH TD SCH (08:57)
[2016-05-16] MEDS: FUROSEMIDE 20 MG/2 ML VIAL IV PUSH SCH ×2 (08:57→17:32)
[2016-05-16] MEDS: METHADONE HCL 10 MG TAB PO SCH (08:58)
[2016-05-16] MEDS: SODIUM CHLORIDE 0.9% FLUSH 5 ML FLUSH FLUSH SCH ×2 (08:59→22:33)
--- NOTE | 2016-05-16 14:37 | HHI.GIFU ---
Subjective Remarks Resting in bed. No nausea, vomiting. No abdominal pain. Tolerating diet. No active bleeding. (Ester Martínez) Objective Vitals I&O Vital Signs Date Time Temp Pulse Resp B/P Pulse Ox O2 Delivery O2 Flow Rate FiO2 05/16/16 10:50 93 21 05/16/16 08:00 98.7 99 18 118/77 92 05/16/16 04:00 97.4 78 19 127/87 95 05/16/16 00:00 97.6 79 20 120/70 95 05/15/16 20:05 103 05/15/16 20:00 98.6 105 18 124/77 95 05/15/16 18:42 21 05/15/16 16:00 97.7 100 18 122/62 94 I/O 05/15/16 05/15/16 05/15/16 05/16/16 05/16/16 05/16/16 07:00 15:00 23:00 07:00 15:00 23:00 Intake Total 360 ml 325 ml 360 ml 360 ml Output Total 1150 ml 775 ml 400 ml 300 ml Balance -790 ml -450 ml -40 ml 60 ml Intake Oral 360 ml 325 ml 360 ml 360 ml IV Total 0 ml 0 ml 0 ml Output Urine Total 1150 ml 775 ml 400 ml 300 ml # Voids 2 # Bowel Movements 0 1 1 5 Laboratory Laboratory Tests Test 05/16/16 05:53 White Blood Count 3.6 Red Blood Count 3.17 Hemoglobin 11.4 Hematocrit 32.8 Mean Corpuscular Volume 103.6 Mean Corpuscular Hemoglobin 35.8 Mean Corpuscular Hemoglobin 34.6 Concent Red Cell Distribution Width 19.5 Platelet Count 43 Mean Platelet Volume 9.5 Prothrombin Time 16.1 Prothromb Time International 1.4 Ratio Activated Partial 33.4 Thromboplast Time Fibrinogen 159 Sodium Level 133 Potassium Level 3.7 Chloride Level 97 Carbon Dioxide Level 29.7 Anion Gap 6 Blood Urea Nitrogen 12 Creatinine 0.97 Estimat Glomerular Filtration 82 Rate Random Glucose 92 Calcium Level 7.7 Total Bilirubin 3.6 Aspartate Amino Transf 114 (AST/SGOT) Alanine Aminotransferase 38 (ALT/SGPT) Alkaline Phosphatase 377 Total Protein 6.8 Albumin 1.9 Imaging Last Impressions Abdomen CT 05/15/16 0000 Signed Impressions: Service Date/Time: Sunday, May 15, 2016 01:27 - CONCLUSION: 1. Patent portal vein. 2. Recannulization of the periumbilical vein suggesting portal hypertension. 3. Hepatic steatosis. 4. Tiny bilateral pleural effusions and small volume ascites. 5. Cholelithiasis. 6. 2 tiny low attenuation lesions involving the liver. These are too small to accurately characterize with CT. They may simply relate to cysts or hemangiomas. Estrada Woo Jr., MD Liver Ultrasound 05/13/16 0000 Signed Impressions: Service Date/Time: Friday, May 13, 2016 10:49 - CONCLUSION: 1. Moderate ascites in all 4 quadrants. 2. Hepatosplenomegaly with hepatofugal flow within the main portal vein and 3. Cholelithiasis. 4. There is no documented flow in the main portal vein near the danie hepatis on color Doppler imaging consistent with partial thrombosis. Dayton Hart MD Physical Exam HEENT: Normocephalic; atraumatic; no jaundice. Throat is clear. NECK: Neck is supple, no JVD, no lymphadenopathy. CHEST: CTA CARDIAC: RRR ABDOMEN: Soft, nondistended, nontender; hepatosplenomegaly; bowel sounds are present in all four quadrants. Ascites EXTREMITIES: No clubbing, cyanosis, or edema. SKIN: Normal; no rash; no jaundice. 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 (Ester Martínez) Assessment and Plan Plan ASSESSMENT: - Portal vein thrombosis. Unclear if this is acute or chronic. He has never been diagnosed with liver cirrhosis although he does have evidence of liver disease on labs. However, at the same time, he seems to have sudden decompensation over the past week with ascites and confusion. Hematology is following. He was started on lovenox at reduced dose, but has had worsening thrombocytopenia and therefore this was decreased again. - Confusion. Ammonia 13. RESOLVED. - Ascites, new onset. Moderate ascites all quadrants. Hematology has recommended not to proceed with paracentesis at this time secondary to anticoagulation and thrombocytopenia. Spironolactone and Lasix - Nausea, vomiting, abdominal pain x 6 days per patient. Improved at this time. - GERD. States he takes Ranitidine but still has breakthrough symptoms - Constipation. Lactulose - Anemia with drop in Hgb but no evidence of blood loss. H&H stable at 11.4/ 32.8. EGD when able. - Coaguloapathy, Thrombocytopenia. PT 15.2, INR 1.4, Plt 44 - Elevated LFTs, alcoholic hepatitis, ?underlying liver cirrhosis. Never been dx with cirrhosis although hx of ETOH abuse and drug abuse. Father from liver failure, cirrhosis- unclear if this was related to ETOH or other liver disease. Iron saturation 94.5%, Liver Ultrasound (05/13/16) revealed 1. Moderate ascites in all 4 quadrants. 2. Hepatosplenomegaly with hepatofugal flow within the main portal vein and 3. Cholelithiasis. 4. There is no documented flow in the main portal vein near the danie hepatis on color Doppler imaging consistent with partial thrombosis T. Bili 3.6, AST 114, ALT 38, Alk Phosph 377. Hepatitis profile negative. AFP 2.5, alpha-1 anti-trypsin pending, Ceruloplasmin pending, iron saturation 94.5%, hereditary hemochromatosis gene pending, BECCA neg, ASMA neg, AMA <20.0 - Elevated Iron Saturation, could also be related to etoh abuse. Hfe pending. PLAN: - Low sodium diet - Anticoagulation per hematology - Cont. Protonix - Cont. Lasix, Spironolactone - Await Ceruloplasmin, Alpha 1 Antitrypsin - Await Hfe gene - Supportive care - Consider EGD prior to d/c - Further recommendations to follow based on results of above - PT seen and examined by Dr. Kimball and myself and this note is written on his behalf (Ester Martínez) Physician Comments Patient was seen and examined, agree with above note and plan, plan EGD in am, avoid ETOH (Sushil Kimball MD) Ester Martínez May 16, 2016 14:37 Sushil Kimball MD May 16, 2016 20:25
[2016-05-16] MEDS: ENOXAPARIN SODIUM 40 MG/0.4 ML SYRINGE SQ SCH (20:00)
[2016-05-17] VITALS: BP 114/60; PULSE 90; RESP 18; TEMP 97.1; O2SAT 94
[2016-05-17 04:00] VITALS: BP 114/60; PULSE 90; RESP 18; TEMP 97.1; O2SAT 94
[2016-05-17 05:12] LABS: HEMATOCRIT 32.7 % (39.0-51.0); MEAN CELL VOLUME 104.1 FL (80.0-100.0); MEAN CORPUSCULAR HEMOGLOBIN 37.2 PG (27.0-34.0); MEAN CORPUSCULAR HGB CONC 35.7 % (32.0-36.0); PLATELET COUNT 44 TH/MM3 (150-450); RED BLOOD COUNT 3.14 MIL/MM3 (4.50-5.90); RED CELL DISTRIBUTION WIDTH 19.4 % (11.6-17.2); WHITE BLOOD COUNT 3.9 TH/MM3 (4.0-11.0)
[2016-05-17 05:21] LABS: REVIEW FLAG FINAL
[2016-05-17 05:56] LABS: INTERNATIONAL NORMALIZED RATIO 1.4 RATIO; PROTHROMBIN TIME - PATIENT 15.2 SEC (9.8-11.6)
[2016-05-17] MEDS: ONDANSETRON HCL 4 MG/2 ML VIAL IVP PRN (06:11)
[2016-05-17] MEDS: PANTOPRAZOLE SODIUM 40 MG VIAL IV SCH ×2 (07:32→07:37)
[2016-05-17] MEDS: METHADONE HCL 10 MG TAB PO SCH ×2 (07:32→09:49)
[2016-05-17] MEDS: SPIRONOLACTONE 100 MG TAB PO SCH ×2 (07:32→09:49)
[2016-05-17] MEDS: DOCUSATE SODIUM 50 MG/SENNA 8.6 MG TAB PO SCH ×2 (07:33→09:49)
[2016-05-17] MEDS: POLYETHYLENE GLYCOL 17 GM PKG PO SCH (07:33)
[2016-05-17] MEDS: NICOTINE 14 MG/24 HR PATCH TD SCH (07:37)
[2016-05-17] MEDS: FUROSEMIDE 20 MG/2 ML VIAL IV PUSH SCH (07:37)
[2016-05-17] MEDS: SODIUM CHLORIDE 0.9% FLUSH 5 ML FLUSH FLUSH SCH (07:38)
[2016-05-17 08:00] VITALS: BP 120/56; PULSE 85; RESP 16; TEMP 97.7; O2SAT 92
[2016-05-17 08:22] VITALS: BP 134/84; PULSE 91; RESP 20; TEMP 97.1; O2SAT 94
[2016-05-17] MEDS ORDERED: PROPOFOL 200 MG/20 ML AMP IV ONE (08:52)
--- NOTE | 2016-05-17 09:00 | HHI.GIFU ---
Subjective Remarks feels bettter, no sign of bleed, feels back to baseline.alert and oriented. Objective Vitals I&O Vital Signs Date Time Temp Pulse Resp B/P Pulse Ox O2 Delivery O2 Flow Rate FiO2 05/17/16 08:22 97.1 91 20 134/84 94 05/17/16 08:00 97.7 85 16 120/56 92 05/17/16 04:00 97.1 90 18 114/60 94 05/17/16 00:00 97.1 90 18 114/60 94 05/16/16 20:21 86 05/16/16 20:00 97.9 94 18 114/69 94 05/16/16 16:00 97.2 93 16 125/78 94 05/16/16 12:00 99.3 98 17 121/86 94 05/16/16 10:50 93 21 I/O 05/16/16 05/16/16 05/16/16 05/17/16 05/17/16 05/17/16 07:00 15:00 23:00 07:00 15:00 23:00 Intake Total 360 ml 460 ml 240 ml 0 ml Output Total 300 ml 825 ml 200 ml Balance 60 ml 460 ml -585 ml -200 ml Intake Oral 360 ml 240 ml 240 ml Oral Supplement 220 ml IV Total 0 ml 0 ml 0 ml Output Urine Total 300 ml 825 ml 200 ml # Voids 3 # Bowel Movements 5 3 0 0 Laboratory Laboratory Tests Test 05/17/16 04:30 White Blood Count 3.9 Red Blood Count 3.14 Hemoglobin 11.7 Hematocrit 32.7 Mean Corpuscular Volume 104.1 Mean Corpuscular Hemoglobin 37.2 Mean Corpuscular Hemoglobin 35.7 Concent Red Cell Distribution Width 19.4 Platelet Count 44 Mean Platelet Volume 8.7 Prothrombin Time 15.2 Prothromb Time International 1.4 Ratio Physical Exam HEENT: Normocephalic; atraumatic; no jaundice. Throat is clear. NECK: Neck is supple, no JVD, no lymphadenopathy. CHEST: CTA CARDIAC: RRR ABDOMEN: Soft, nondistended, nontender; hepatosplenomegaly; bowel sounds are present in all four quadrants. Ascites EXTREMITIES: No clubbing, cyanosis, or edema. SKIN: Normal; no rash; no jaundice. 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 Assessment and Plan Plan ASSESSMENT: - Portal vein thrombosis. Unclear if this is acute or chronic. He has never been diagnosed with liver cirrhosis although he does have evidence of liver disease on labs. However, at the same time, he seems to have sudden decompensation over the past week with ascites and confusion. Hematology is following. He was started on lovenox at reduced dose, but has had worsening thrombocytopenia and therefore this was decreased again. - Confusion. Ammonia 13. RESOLVED. - Ascites, new onset. Moderate ascites all quadrants. Hematology has recommended not to proceed with paracentesis at this time secondary to anticoagulation and thrombocytopenia. Spironolactone and Lasix - Nausea, vomiting, abdominal pain x 6 days per patient. Improved at this time. - GERD. States he takes Ranitidine but still has breakthrough symptoms - Constipation. Lactulose - Anemia with drop in Hgb but no evidence of blood loss. H&H stable at 11.4/ 32.8. EGD when able. - Coaguloapathy, Thrombocytopenia. PT 15.2, INR 1.4, Plt 44 - Elevated LFTs, alcoholic hepatitis, ?underlying liver cirrhosis. Never been dx with cirrhosis although hx of ETOH abuse and drug abuse. Father from liver failure, cirrhosis- unclear if this was related to ETOH or other liver disease. Iron saturation 94.5%, Liver Ultrasound (05/13/16) revealed 1. Moderate ascites in all 4 quadrants. 2. Hepatosplenomegaly with hepatofugal flow within the main portal vein and 3. Cholelithiasis. 4. There is no documented flow in the main portal vein near the danie hepatis on color Doppler imaging consistent with partial thrombosis T. Bili 3.6, AST 114, ALT 38, Alk Phosph 377. Hepatitis profile negative. AFP 2.5, alpha-1 anti-trypsin pending, Ceruloplasmin pending, iron saturation 94.5%, hereditary hemochromatosis gene pending, BECCA neg, ASMA neg, AMA <20.0 - Elevated Iron Saturation, could also be related to etoh abuse. Hfe pending. 05-17-16 doing better, back to base line,no sign of active bleed, EGD showed grade 1 esophageal varices, gastropathy and gastritis Bx from antrum PLAN: - Low sodium diet - Anticoagulation per hematology - Cont. Protonix - Cont. Lasix, Spironolactone - Await Ceruloplasmin, Alpha 1 Antitrypsin - Await Hfe gene - Supportive care - propranolol 10 mg daily for portal HTN ok to DC from GI stand FU with GI as outpatient in 2-3 wks Sushil Kimball MD May 17, 2016 09:00
[2016-05-17] MEDS ORDERED: PROPRANOLOL HCL 10 MG TAB PO SCH (10:00)
[2016-05-17] MEDS ORDERED: FURO1TAB60 PO ×2 (11:06→11:13)
[2016-05-17] MEDS ORDERED: PROP10TA6 PO (11:06)
[2016-05-17] MEDS ORDERED: SENN1TAB PO (11:06)
[2016-05-17] MEDS ORDERED: POLY17S PO (11:06)
[2016-05-17] MEDS ORDERED: SPIR100T PO ×2 (11:06→11:13)
--- NOTE | 2016-05-17 11:11 | HHI.DCPOC ---
Discharge Care Plan Diagnosis: (1) Ascites (2) Methadone dependence (3) Portal hypertension Goals to Promote Your Health * To prevent worsening of your condition and complications, please take your medications as prescribed. Follow up as instructed. * To maintain your health at the optimal level, please quit smoking and drinking. Directions to Meet Your Goals Take your medications as prescribed Follow your dietary instruction Follow activity as directed Keep your appointments as scheduled Take your immunizations and boosters as scheduled If your symptoms worsen call your PCP, if no PCP go to Urgent Care Center or Emergency Room Smoking is Dangerous to Your Health. Avoid second hand smoke Call the 24-hour hour crisis hotline for domestic abuse at Sohail Griffin MD R1 May 17, 2016 11:11
[2016-05-17] MEDS ORDERED: FURO1TAB62 PO (11:24)
[2016-05-17] MEDS ORDERED: PANT20 PO (11:40)
--- NOTE | 2016-05-17 11:46 | HHI.FPPN ---
Subjective Remarks No acute events overnight. Except for some pulse in the 90s, oxygen saturation of 94% on room air, 1 episode of low blood pressure too 80 systolic, afebrile vital signs stable. Patient reports feeling better, less tremulousness, less anxiety, less nausea, moving his bowels well. Discussed plan to discharge patient today to go home with the assistance of his family. (Sohail Griffin MD R1) Objective Vitals Vital Signs Date Time Temp Pulse Resp B/P Pulse Ox O2 Delivery O2 Flow Rate FiO2 05/17/16 10:49 16 05/17/16 09:09 84 16 122/79 94 05/17/16 09:04 83 16 115/68 94 05/17/16 08:59 99.0 81 16 80/53 97 05/17/16 08:22 97.1 91 20 134/84 94 05/17/16 08:00 97.7 85 16 120/56 92 05/17/16 04:00 97.1 90 18 114/60 94 05/17/16 00:00 97.1 90 18 114/60 94 05/16/16 20:21 86 05/16/16 20:00 97.9 94 18 114/69 94 05/16/16 16:00 97.2 93 16 125/78 94 05/16/16 12:00 99.3 98 17 121/86 94 I/O 05/16/16 05/16/16 05/16/16 05/17/16 05/17/16 05/17/16 07:00 15:00 23:00 07:00 15:00 23:00 Intake Total 360 ml 460 ml 240 ml 0 ml 300 ml Output Total 300 ml 825 ml 200 ml Balance 60 ml 460 ml -585 ml -200 ml 300 ml Intake Oral 360 ml 240 ml 240 ml Oral Supplement 220 ml IV Total 0 ml 0 ml 0 ml 300 ml Output Urine Total 300 ml 825 ml 200 ml # Voids 3 # Bowel Movements 5 3 0 0 (Sohail Griffin MD R1) Result Diagram: 05/17/16 0430 05/16/16 0553 Objective Remarks O. CONSTITUTIONAL/GEN: Lying comfortably in bed. No acute distress. EYES: PERRLA, EOMI. LUNGS: clear to auscultation bilaterally with no crackles appreciated, respiratory effort is normal. CARDIOVASCULAR: RRR without murmur or gallop. Improving trace edema in lower extremities. GI/ABD: Decreased ascites. Nontender to palpation. Positive bowel sounds NEURO: No focal deficits. Improved tremors SKIN: somewhat bronze with scattered spider angiomata. Posterior aspect of right upper arm with 10 x 5 cm purple bruise MUSC: back is normal in appearance. Except for some 1+ pitting edema to the knee bilaterally, which is improved, Extremities are normal in appearance PSYCH/MENTAL STATUS: Alert and oriented x 3. (Sohail Griffin MD R1) A/P Assessment and Plan 50-year-old man with a history of substance abuse, heavy drinking recently and remote history of snorting cocaine and heroin, presents with portal vein thrombosis. Iron studies concerning for hemachromatosis. GI and hematology consult. Plan as below. Discharge Planning Discharge pending workup of etiology of portal hypertension, pain control, nausea control, volume control, recommendations from GI and hematology. Plan to discharge today. Patient will follow-up with GI in 2-3 weeks. (Sohail Griffin MD R1) Attending Attestation Patient seen and examined. Case reviewed and discussed with the resident team. Agree with plan of care as discussed with me and documented in the resident note. (Fabienne Montez MD) Problem List: (1) Portal hypertension Status: Acute Plan: With esophageal varices seen on endoscopy. (2) Ascites Status: Acute Plan: Hematologty and Gastroenterology consult. Appreciate recommendations below: - Low sodium diet - No Anticoagulation per hematology (because CTA showed patent portal vein) - Cont. Protonix - Cont. Lasix, Spironolactone - Await Ceruloplasmin, Alpha 1 Antitrypsin - Await Hfe gene - Supportive care - propranolol 10 mg daily for portal HTN - ok to DC from GI standpoint - FU with GI as outpatient in 2-3 wks Pain control as below: * Methadone 90 mg by mouth daily * Dilaudid 1 mg IV every 4 hours when necessary for breakthrough pain * Tramadol 50 mg by mouth every 4 hours when necessary for pain 3-5 * Tramadol 100 mg by mouth every 4 hours when necessary for pain 6-10 Constipation: * MiraLAX 17 g by mouth daily * Nancy-Colace 2 tab by mouth twice a day * Lactulose Nausea: * Reglan 10 mg IV every 6 hours when necessary for nausea or vomiting * Zofran 4 mg IV push every 6 hours when necessary for nausea or vomiting * Compazine 25 mg [place] every 12 hours when necessary for nausea or vomiting * Phenergan 25 mg IM every 6 hours when necessary for nausea or vomiting Diuretics: * Spironolactone 200 mg by mouth daily * Lasix 40 mg IV push twice a day Protonix 40 mg IV daily History: -CT abdomen with IV contrast showed patent portal vein, recannulization of the periumbilical vein suggesting portal hypertension, hepatic steatosis, tiny bilateral pleural effusions small volume ascites, cholelithiasis, 2 tiny low- attenuation lesions involving the liver that are too small to accurately characterize a CT, which may be cysts or hemangiomas. Hepatitis profile negative, HIV negative, iron profile shows mildly elevated iron, mildly low TIBC, elevated percent saturation, elevated ferritin -Endoscopy on 05/17/16 showed esophageal varices. (3) Methadone dependence Status: Chronic Plan: Patient with methadone dependence. Methadone 90 mg by mouth daily; plan to wean as outpatient (4) Alcohol use Status: Chronic Plan: Patient with history of heavy drinking complaining of withdrawal symptoms. Patient no longer scoring on CIWA assessment, no longer receiving Ativan. CIWA protocol Recommended patient quit drinking and never drink again. (5) Tobacco use Status: Chronic Plan: Patient reports smoking about a pack per day since 13 years old and more recently about a half pack per day. Nicotine patch 14 mg patch transdermal daily (6) No contraindication to deep vein thrombosis (DVT) prophylaxis Status: Acute Plan: Per hematology- Lovenox 40 mg q24 hours. Hold for plt<30,000. Not discharging patient on this medication as patient has patent portal vein on CTA, no known thrombosis (7) Nutrition, metabolism, and development symptoms Status: Acute Plan: Fluids: Fluid and salt restrict patient as he is currently volume overloaded Electrolytes: Monitor and replete as necessary Nutrition: Regular basic diet as tolerated GI prophylaxis: Protonix 40 mg IV daily (Sohail Griffin MD R1) Sohail Griffin MD R1 May 17, 2016 11:46 Fabienne Montez MD May 18, 2016 15:46
[2016-05-17 12:00] VITALS: BP 111/76; PULSE 76; RESP 16; TEMP 96.9; O2SAT 93
--- NOTE | 2016-05-17 14:29 | EKG ---
Date Performed: 05/17/2016 Time Performed: 04:56:20 PTAGE: 50 years EKG: Sinus rhythm Prolonged QT interval ST junctional depression is nonspecific Borderline ECG NO PREVIOUS TRACING DOCTOR: Genna Sinha Interpretating Date/Time 05/17/2016 14:22:46
[2016-05-20 17:00] LABS: HEREDITARY HEMOCHROM SPECIMEN WB Whole Blood (())
[2016-05-24] MEDS ORDERED: FURO1TAB62 PO (10:28)
[2016-05-24] MEDS ORDERED: SPIR100T PO (10:28)
[2016-05-24] MEDS ORDERED: PANT20 PO (10:28)
[2016-05-24] MEDS ORDERED: PROP10TA6 PO (10:28)
[2016-05-24] MEDS ORDERED: ZOFR4TAB PO (10:36)
--- NOTE | 2016-05-28 20:05 | HHI.DS ---
Discharge Summary Admission Date May 13, 2016 at 12:36 Admitting Diagnosis portal vein thrombosis (1) Portal hypertension Diagnosis: Principal Plan: With esophageal varices seen on endoscopy. (2) Ascites Diagnosis: Principal Plan: Hematologty and Gastroenterology consult. Appreciate recommendations below: - Low sodium diet - No Anticoagulation per hematology (because CTA showed patent portal vein) - Cont. Protonix - Cont. Lasix, Spironolactone - Await Ceruloplasmin, Alpha 1 Antitrypsin - Await Hfe gene - Supportive care - propranolol 10 mg daily for portal HTN - ok to DC from GI standpoint - FU with GI as outpatient in 2-3 wks Pain control as below: * Methadone 90 mg by mouth daily * Dilaudid 1 mg IV every 4 hours when necessary for breakthrough pain * Tramadol 50 mg by mouth every 4 hours when necessary for pain 3-5 * Tramadol 100 mg by mouth every 4 hours when necessary for pain 6-10 Constipation: * MiraLAX 17 g by mouth daily * Nancy-Colace 2 tab by mouth twice a day * Lactulose Nausea: * Reglan 10 mg IV every 6 hours when necessary for nausea or vomiting * Zofran 4 mg IV push every 6 hours when necessary for nausea or vomiting * Compazine 25 mg [place] every 12 hours when necessary for nausea or vomiting * Phenergan 25 mg IM every 6 hours when necessary for nausea or vomiting Diuretics: * Spironolactone 200 mg by mouth daily * Lasix 40 mg IV push twice a day Protonix 40 mg IV daily History: -CT abdomen with IV contrast showed patent portal vein, recannulization of the periumbilical vein suggesting portal hypertension, hepatic steatosis, tiny bilateral pleural effusions small volume ascites, cholelithiasis, 2 tiny low- attenuation lesions involving the liver that are too small to accurately characterize a CT, which may be cysts or hemangiomas. Hepatitis profile negative, HIV negative, iron profile shows mildly elevated iron, mildly low TIBC, elevated percent saturation, elevated ferritin -Endoscopy on 05/17/16 showed esophageal varices. (3) Methadone dependence Diagnosis: Secondary Plan: Patient with methadone dependence. Methadone 90 mg by mouth daily; plan to wean as outpatient (4) Alcohol use Diagnosis: Principal Plan: Patient with history of heavy drinking complaining of withdrawal symptoms. Patient no longer scoring on CIWA assessment, no longer receiving Ativan. CIWA protocol Recommended patient quit drinking and never drink again. (5) Tobacco use Diagnosis: Secondary Plan: Patient reports smoking about a pack per day since 13 years old and more recently about a half pack per day. Nicotine patch 14 mg patch transdermal daily (6) No contraindication to deep vein thrombosis (DVT) prophylaxis Diagnosis: Secondary Plan: Per hematology- Lovenox 40 mg q24 hours. Hold for plt<30,000. Not discharging patient on this medication as patient has patent portal vein on CTA, no known thrombosis (7) Nutrition, metabolism, and development symptoms Diagnosis: Secondary Plan: Fluids: Fluid and salt restrict patient as he is currently volume overloaded Electrolytes: Monitor and replete as necessary Nutrition: Regular basic diet as tolerated GI prophylaxis: Protonix 40 mg IV daily Consultants GI, hematology Brief History Patient is a 50-year-old man with a history of substance abuse who presents with 1 week of increasing confusion, abdominal distention, abdominal pain, nausea, vomiting, constipation. He reports that his confusion largely consists of forgetfulness and not knowing where he puts things. He reports vomiting for days, and that he hasn't been eating or stooling. He describes the vomit as appearing yellow then green then dark brown but not coffee ground in appearance. 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 When pt first noticed that his abdomen was distended, he went to the [facility] emergency department where he was noted to have low platelets and an elevated bilirubin consistent with liver disease. He was discharged home with antinausea medication. He reports that Zofran was not working for his nausea and vomiting, but Phenergan seemed to help. His sister, a nurse, gave him Aldactone, which seemed to help but only temporarily. Patient denies any previous history of known liver disease. He denied using IV drugs, but he did use cocaine heavily years ago. He has not had any fevers or chills but he has been constipated. He is on methadone due to a history of opiate dependency, but he's missed his methadone over the past 3 -4 days because of the holiday. Imaging Last Impressions Abdomen CT 05/15/16 0000 Signed Impressions: Service Date/Time: Sunday, May 15, 2016 01:27 - CONCLUSION: 1. Patent portal vein. 2. Recannulization of the periumbilical vein suggesting portal hypertension. 3. Hepatic steatosis. 4. Tiny bilateral pleural effusions and small volume ascites. 5. Cholelithiasis. 6. 2 tiny low attenuation lesions involving the liver. These are too small to accurately characterize with CT. They may simply relate to cysts or hemangiomas. Estrada Woo Jr., MD Liver Ultrasound 05/13/16 0000 Signed Impressions: Service Date/Time: Friday, May 13, 2016 10:49 - CONCLUSION: 1. Moderate ascites in all 4 quadrants. 2. Hepatosplenomegaly with hepatofugal flow within the main portal vein and 3. Cholelithiasis. 4. There is no documented flow in the main portal vein near the danie hepatis on color Doppler imaging consistent with partial thrombosis. Dayton Hart MD PE at Discharge O. CONSTITUTIONAL/GEN: Lying comfortably in bed. No acute distress. EYES: PERRLA, EOMI. LUNGS: clear to auscultation bilaterally with no crackles appreciated, respiratory effort is normal. CARDIOVASCULAR: RRR without murmur or gallop. Improving trace edema in lower extremities. GI/ABD: Decreased ascites. Nontender to palpation. Positive bowel sounds NEURO: No focal deficits. Improved tremors SKIN: somewhat bronze with scattered spider angiomata. Posterior aspect of right upper arm with 10 x 5 cm purple bruise MUSC: back is normal in appearance. Except for some 1+ pitting edema to the knee bilaterally, which is improved, Extremities are normal in appearance PSYCH/MENTAL STATUS: Alert and oriented x 3. Hospital Course Pt was admitted for new onset ascites. Pt improved clinically with diuresis throughout admission. GI was consulted for extensive workup, which was mostly unremarkable except for upper endoscopy, which showed esophageal varicies c/w portal HTN. Hematology was also consulted to help guide anti-coagulation in the context of the admitting diagnosis of thrombocytopenia and portal vein thrombosis, which after CTA, appeared patent and not thrombosed but rather c/w portal HTN. Per hematology, pt did not need anti-coagulation. Pt was cleared for discharge by GI, who prescribed propranolol for his portal HTN. Pt was discharged on Pt also needed CIWA and Ativan throughout admission, until he no longer had significant withdrawal symptoms. Pt Condition on Discharge: Stable Discharge Disposition: Discharge Home Discharge Instructions DIET: Follow Instructions for: As Tolerated, No Restrictions, Low Sodium Diet Additional Diet Instructions: Low salt diet <2g per day Activities you can perform: Regular-No Restrictions, Weight Bearing as Steve Other Activity Instructions: Please ask for help rather than fall. Follow up Referrals: Gastroenterology - 05/31/16 with Sushil Kimball MD PCP Follow-up - 1 Week New Medications: Polyethylene Glycol 3350 Powder (Polyethylene Glycol 3350 Powder) 17 Gm Pow 17 GM PO DAILY Days 30 Sennosides-Docusate Sodium (Senna Plus 8.6-50 mg) 1 Tab Tab 2 TAB PO BID #60 TAB Continued Medications: Methadone (Methadone) 40 Mg Tab 90 MG PO DAILY Ref 0 TAB Sohail Griffin MD R1 May 28, 2016 20:05
[2016-07-17] MEDS ORDERED: PROM12.54 PO ×2 (10:52→11:02)
[2016-07-17] MEDS ORDERED: AUGM500T7 PO (11:18)
[2016-10-01] MEDS ORDERED: PROP10TA6 PO (09:09)
[2016-10-01] MEDS ORDERED: PANT20 PO (09:09)
[2016-10-01] MEDS ORDERED: SPIR100T PO (09:09)
[2016-10-17] MEDS ORDERED: ACYC800T PO (11:47)
[2016-10-17] MEDS ORDERED: TRIA0.5O TOPICAL (11:48)
[2016-10-17] MEDS ORDERED: PROM12.54 PO (11:49)
[2016-10-17] MEDS ORDERED: FURO1TAB62 PO (11:49)
== END 2016-05-17 15:22 | disposition home or self-care (01) | DRG 442 ==
LOC: NEPC 09:37 → NEDA 12:36 → N07B 17:47
PROVIDERS: ADMIT Family Medicine; ATTEND Family Medicine
DX: I81 Portal vein thrombosis (principal); F10.239 Alcohol dependence with withdrawal, unspecified; I85.00 Esophageal varices without bleeding; D69.6 Thrombocytopenia, unspecified; E87.70 Fluid overload, unspecified; F11.20 Opioid dependence, uncomplicated; K76.6 Portal hypertension; G25.3 Myoclonus; E86.0 Dehydration; K70.31 Alcoholic cirrhosis of liver with ascites; D64.9 Anemia, unspecified; E11.9 Type 2 diabetes mellitus without complications; K70.11 Alcoholic hepatitis with ascites; Y90.8 Blood alcohol level of 240 mg/100 ml or more; F17.210 Nicotine dependence, cigarettes, uncomplicated; G47.00 Insomnia, unspecified; I10 Essential (primary) hypertension; K21.9 Gastro-esophageal reflux disease without esophagitis; K59.00 Constipation, unspecified; K80.20 Calculus of gallbladder without cholecystitis without obstruction; F41.9 Anxiety disorder, unspecified
CPT/HCPCS: 74160; 76705; 80053; 80074; 80307; 80320; 80329; 81256; 82103; 82105; 82140; 82390; 82728; 83520; 83540; 83550; 83690; 84466; 85025; 85027; 85384; 85610; 85730; 86038; 86256; 86703; 88305; 88312; 93005; C9113; G0480; J1650; J1940; J2060; J2405; J2765; Q9963; Q9967

== ENCOUNTER → 2016-10-01 | Outpatient (CLI) | payer OTHER ==
[~2016-10-01] MED LIST changes: +ACYC800T PO; +AUGM500T7 PO; +FURO1TAB62 PO; +PANT20 PO; +POLY17S PO; +PROM12.54 PO; +PROP10TA6 PO; +SENN1TAB PO; +SPIR100T PO; +TRIA0.5O TOPICAL
[2016-10-01 07:51] LABS: AUTOMATED NEUTROPHIL # 4.7 TH/MM3 (1.8-7.7); BASOPHIL # 0.1 TH/MM3 (0-0.2); BASOPHIL % 0.8 % (0.0-2.0); EOSINOPHIL # 0.3 TH/MM3 (0-0.4); EOSINOPHIL % 4.2 % (0.0-4.0); HEMATOCRIT 38.9 % (39.0-51.0); HEMO FLAGS DIFF FINAL; LYMPH % 23.3 % (9.0-44.0); LYMPHOCYTE # 1.7 TH/MM3 (1.0-4.8); MEAN CELL VOLUME 87.2 FL (80.0-100.0); MEAN CORPUSCULAR HEMOGLOBIN 29.7 PG (27.0-34.0); NEUT % 62.7 % (16.0-70.0); PLATELET COUNT 143 TH/MM3 (150-450); RED BLOOD COUNT 4.46 MIL/MM3 (4.50-5.90); WHITE BLOOD COUNT 7.5 TH/MM3 (4.0-11.0)
[2016-10-01 08:19] LABS: ANION GAP 11 MEQ/L (5-15); AST (GOT) 38 U/L (15-37); BICARBONATE 28.9 MEQ/L (21.0-32.0); BLOOD UREA NITROGEN 25 MG/DL (7-18); CHLORIDE 97 MEQ/L (98-107); GLOMERULAR FILTRATION RATE 69 ML/MIN (>89); GLUCOSE,FASTING 98 MG/DL (74-99); POTASSIUM 3.9 MEQ/L (3.5-5.1); SODIUM (NA) 137 MEQ/L (136-145)
[2016-10-01 08:29] LABS: ALKALINE PHOSPHATASE 103 U/L (45-117); ALT (GPT) 24 U/L (12-78); TOTAL BILIRUBIN ADULT 0.8 MG/DL (0.2-1.0)
== END ==
LOC: CLAB 07:19
PROVIDERS: ATTEND Nurse Practitioner Family
DX: R18.8 Other ascites (principal); E07.9 Disorder of thyroid, unspecified
CPT/HCPCS: 36415; 80053; 84443; 85025

== ENCOUNTER 2017-10-01 16:42 | Emergency (ER) | payer SELFPAY ==
[~2017-10-01] VITALS: Ht 180.3 cm; Wt 100.8 kg
[~2017-10-01 16:42] MED LIST changes: -ACYC800T PO; -AUGM500T7 PO; -PROM12.54 PO; +PROM25TA10 PO; -ZOFR4TAB PO
[2017-10-01 16:46] VITALS: BP 137/80; PULSE 73; RESP 16; TEMP 98.4; O2SAT 98
[2017-10-01] MEDS ORDERED: FURO1TAB60 PO (16:55)
--- NOTE | 2017-10-01 17:27 | PD ---
HPI Chief Complaint: Fall Time Seen by Provider: 17:11 Travel History International Travel<30 days: No Contact w/Intl Traveler<30days: No Traveled to known affect area: No History of Present Illness HPI 52-year-old male presents emergency department for evaluation of right knee pain and left neck pain after a slip and fall that occurred 2 days ago. Says that he was at [employer] going to the bathroom when he slipped on a puddle of water falling back hitting his head and having what he describes a varus injury to the right knee. Patient denies loss of consciousness, blurred vision, headache. He has no head pain or back pain. He points to the lateral aspect of his neck in the upper trapezius where he is having pain. Says he feels as if his head is trying to the left slightly because of the pain. He denies midline pain. Patient says that his right knee "popped" during the incident and describes the pain is "deep" located in the mid medial joint line. The pain is mild in severity and non radiating Says that he has been icing and using ibuprofen and this has reduced the swelling slightly. Patient says he bought a brace which again has helped reduce his pain and swelling. Of note, patient has a history of liver diseases but denies any sequelae or consequences as a result. PFSH Past Medical History Hx Anticoagulant Therapy: No Cardiovascular Problems: Yes (HTN) Diabetes: Yes (DIET CONTROLLED) Patient Takes Glucophage: No Diminished Hearing: No Hypertension: Yes Medical other: Yes (LIVER DS) Musculoskeletal: Yes (CHRONIC ANTERIOR NECK PAIN) Immunizations Current: No Thyroid Disease: Yes (NODULE ABLATION) Past Surgical History Other Surgery: Yes (THYROID NODULE ABLATION) Social History Alcohol Use: No (HX OF) Tobacco Use: Yes (/2 PPD) Substance Use: No (HX NARCOTIC ABUSE; METHADONE MAINTENENCE SINCE 05/2015) Allergies-Medications (Allergen,Severity, Reaction): Coded Allergies: acetaminophen (Unverified Allergy, Unknown, Rash, 10/01/17) propoxyphene (Unverified Allergy, Unknown, Rash, 10/01/17) Reported Meds & Prescriptions Reported Meds & Active Scripts Active Robaxin (Methocarbamol) 500 Mg Tab 500 Mg PO TID 3 Days Phenergan (Promethazine HCl) 25 Mg Tablet 25 Mg PO DIRECTED PRN Spironolactone 100 Mg Tab 100 Mg PO DAILY Propranolol (Propranolol HCl) 10 Mg Tab 10 Mg PO Q12HR Reported Lasix (Furosemide) 40 Mg Tab 40 Mg PO DAILY Review of Systems Except as stated in HPI: all other systems reviewed are Neg Physical Exam Narrative GENERAL: Well-nourished, well-developed patient, in NAD SKIN: Focused skin assessment warm/dry. No rashes or lesions. HEAD: Normocephalic. Atraumatic. EYES: No scleral icterus. No injection or drainage. PERRLA, EOMI THROAT: No pharyngeal injection, exudates, or tonsillar hypertrophy. Airway is patent. NECK: Supple, trachea midline. No JVD or lymphadenopathy. No meningismus. No midline tenderness. Tender to palpation with accompanying muscle spasms of the left upper trapezius and lateral musculature. CARDIOVASCULAR: Regular rate and rhythm without murmurs, gallops, or rubs. RESPIRATORY: Breath sounds equal bilaterally. No accessory muscle use. No wheezes, rales, or rhonchi MUSCULOSKELETAL: No cyanosis, or edema. Right upper extremity-area of ecchymosis at the bicipital groove, pulses intact , no significant edema. Right knee-mild effusion noted. Patella moves freely over the knee joint. Mild tenderness palpation of the medial aspect of the joint line. Pulses and sensation present. Full range of motion of the knee although with some pain BACK: No CVA tenderness. No rash. No point tenderness on palpation of the spine. Data Data Last Documented VS Vital Signs Date Time Temp Pulse Resp B/P (MAP) Pulse Ox O2 Delivery O2 Flow Rate FiO2 10/01/17 16:46 98.4 73 16 137/80 (99) 98 Orders Orders Knee, Complete (4vws) (10/01/17 ) Ed Discharge Order (10/01/17 18:08) MDM Medical Decision Making Medical Screen Exam Complete: Yes Emergency Medical Condition: Yes Differential Diagnosis Cervical sprain, cervical strain, cervical fracture, whiplash: Right knee contusion, bursitis, cellulitis, fracture, osteonecrosis, avascular necrosis, sprain, strain Narrative Course 52-year-old male presents emergency department for evaluation of right knee pain and left neck pain after a slip and fall that occurred 2 days ago. Says that he was at [employer] going to the bathroom when he slipped on a puddle of water falling back hitting his head and having what he describes a varus injury to the right knee. Patient denies loss of consciousness, blurred vision, headache. He has no head pain or back pain. He points to the lateral aspect of his neck in the upper trapezius where he is having pain. Says he feels as if his head is trying to the left slightly because of the pain. He denies midline pain. Patient says that his right knee "popped" during the incident and describes the pain is "deep" located in the mid medial joint line. The pain is mild in severity and non radiating Says that he has been icing and using ibuprofen and this has reduced the swelling slightly. Patient says he bought a brace which again has helped reduce his pain and swelling. Of note, patient has a history of liver diseases but denies any sequelae or consequences as a result. Vital signs are stable. I discussed my findings with the patient. Advised that he has no midline tenderness of the neck and no contusion of the head however, he admits to having a liver problem. I advised that he is more likely to develop bleeding as a result of his liver problem. I advised that he should probably obtain a CAT scan of the head. Patient would like to defer and says that he has no problems with his head. Patient has no tenderness to his neck except for the lateral musculature. He has no tenderness palpation of the midline. He has full range of motion. He has no midline tenderness of the back. He does have a contusion to the arm however, this is tender only directly over the area of the ecchymosis. There is no tenderness to the humerus or upper extremities. The right knee is mildly tender to palpation about the joint line. There is no laxity. Pulses present distally. Neurovascular intact. He has full range of motion and a mild effusion when compared to the right. I ordered a knee x-ray to rule out acute process. It appears the patient had a joint effusion. I suspect that there is some soft tissue damage and advised that he follow-up with an orthopedic physician. Advised that he should return to his primary care physician as well for further evaluation. Prescribed Robaxin for the muscle spasms of his neck. Advised him to return for worsening or persistent symptoms. Diagnosis Primary Impression: Knee effusion, right Additional Impressions: Whiplash Qualified Codes: S13.4XXA - Sprain of ligaments of cervical spine, initial encounter Muscle spasm Referrals: Orthopedist Departure Forms: Tests/Procedures, Work Release Enter return to work date: October 03, 2017 Additional Instructions: Use ice or heat for symptom relief. If no contraindications, you may use Tylenol or Motrin per package instructions for your pain. Elevate the joint above the heart to reduce swelling. You may use compression with Cali wrap or similar to reduce swelling. If symptoms persist or worsen, return to the emergency department. Follow up with your primary care physician within 2 days. Recommend he follow-up with an orthopedic physician for further treatment and evaluation as he may need more imaging that we cannot provide here. Return to the emergency department if you experience severe headache, personality changes, blurred vision, nausea, vomiting. Scripts Methocarbamol (Robaxin) 500 Mg Tab 500 MG PO TID for Muscle Spasm for 3 Days, TAB 0 Refills Prov: Wero Guzman MD 10/01/17 Disposition: 01 DISCHARGE HOME Condition: Stable Camryn Stapleton October 01, 2017 17:27
--- NOTE | 2017-10-01 17:55 | RADRPT ---
EXAM DATE: 10/01/2017 5:53 PM EDT AGE/SEX: 52 years / Male INDICATIONS: Right knee pain post slip and fall injury 2 days ago CLINICAL DATA: This is the patient's initial encounter. Patient reports that signs and symptoms have been present for 2 days and indicates a pain score of 8/10. MEDICAL/SURGICAL HISTORY: None. None. COMPARISON: No prior [facility] exams available for comparison. FINDINGS: Bony structures are intact and in normal alignment. There is a minimal joint effusion. Joints are in tact without dislocation or significant arthropathy. Osseous density is normal. Soft tissues are un remarkable. No radiopaque foreign bodies seen. CONCLUSION: Minimal joint effusion. Electronically signed by: Herbie Montez MD 10/01/2017 5:54 PM EDT
[2017-10-01] MEDS ORDERED: ROBA500T PO (18:07)
== END 2017-10-01 18:16 | disposition home or self-care (01) ==
LOC: PHEFT 16:42
DX: M25.461 Effusion, right knee (principal); S13.4XXA Sprain of ligaments of cervical spine, initial encounter; M62.838 Other muscle spasm; W01.0XXA Fall on same level from slipping, tripping and stumbling without subsequent striking against object, initial encounter; Y92.512 Supermarket, store or market as the place of occurrence of the external cause; I10 Essential (primary) hypertension
CPT/HCPCS: 73564; 99283